=== PATIENT | female | born 1955 | race Caucasian/White ===

== ENCOUNTER 2017-04-08 16:14 | Inpatient (IN) | payer MEDICARE ==
[2017-04-08] VITALS (8 sets, daily range): BP systolic 136–187; BP diastolic 46–84; PULSE 92–113; RESP 15; TEMP 99–99.8; O2SAT 100
[2017-04-08] MEDS ORDERED: MIDAZOLAM HCL 5 MG/ML VIAL (1 ML) ONE (17:01)
[2017-04-08] MEDS: SODIUM CHLOR 0.9% 1000 ML INJ 1,000 ML IV SCH (17:30)
[2017-04-08] MEDS ORDERED: MAGNESIUM HYDROXIDE SUSP 30 ML CUP PO PRN (17:30)
[2017-04-08] MEDS ORDERED: ONDANSETRON HCL 4 MG/2 ML VIAL IV PUSH PRN (17:30)
[2017-04-08] MEDS ORDERED: SODIUM CHLORIDE 0.9% FLUSH 10 ML FLUSH IV FLUSH PRN (17:30)
[2017-04-08] MEDS ORDERED: BISACODYL 10 MG SUPP RECTAL PRN (17:30)
[2017-04-08] MEDS ORDERED: MIDAZOLAM HCL 2 MG/2 ML VIAL IV PUSH PRN (17:30)
[2017-04-08] MEDS ORDERED: CHLORHEXIDINE GLUCONATE 2 % 1 PACK (2 CLOTHS) TOP PRN (17:30)
[2017-04-08] MEDS ORDERED: MISCELLANEOUS NURSING INFORMATION XX SCH (17:30)
[2017-04-08] MEDS ORDERED: SENNOSIDES 8.6 MG TAB PO PRN (17:30)
[2017-04-08] MEDS ORDERED: LACTULOSE SYRUP 20 GM/30 ML CUP PO PRN (17:30)
[2017-04-08] MEDS ORDERED: GLUCAGON 1 MG/ML VIAL OTHER PRN ×2 (17:45→19:15)
[2017-04-08] MEDS ORDERED: niCARdipine INJ 25 MG in SODIUM CHLOR 0.9% 250 ML INJ 240 ML IV PRN (17:45)
[2017-04-08] MEDS ORDERED: DEXTROSE 50% IN WATER 50 ML VIAL(D50) IV PUSH PRN ×2 (17:45→19:15)
[2017-04-08] MEDS ORDERED: MIDAZOLAM 100 MG/100 ML INJ 100 ML IV PRN (17:45)
[2017-04-08] MEDS ORDERED: fentaNYL DRIP 250 ML IV PRN (17:45)
--- NOTE | 2017-04-08 17:50 | PD.CONS ---
HPI Consult Requested By Primary Care Physician Unknown Past Family Social History Allergies: Coded Allergies: codeine (Verified Allergy, Unknown, 04/08/17) lisinopril (Verified Allergy, Unknown, 04/08/17) Uncoded Allergies: shellfish (Allergy, Unknown, Anaphylaxis, 04/08/17) Physical Exam Laboratory Laboratory Tests Test 04/08/17 17:32 Blood Gas Puncture Site ART LINE Blood Gas Patient Temperature 98.6 Blood Gas HCO3 24 Blood Gas Base Excess -0.7 Blood Gas Oxygen Saturation 97 Arterial Blood pH 7.38 Arterial Blood Partial Pressure CO2 41 Arterial Blood Partial Pressure O2 180 Arterial Blood Oxygen Content 14.4 Arterial Blood Carboxyhemoglobin 1.5 Arterial Blood Methemoglobin 0.9 Blood Gas Hemoglobin 10.2 Oxygen Delivery Device VENTILATOR Blood Gas Ventilator Setting 450/14/+5/1.0 Blood Gas Inspired Oxygen 50 Assessment and Plan Assessment and Plan Imp:Hemorrhagic stroke, right tempoparietal. Associated to Xarelto Rec: Keep head elevated Repeat CT in am Neuro every hour Hypertonic saline. Maintain Na 150-155 Elroy Richard MD Apr 08, 2017 17:50
--- NOTE | 2017-04-08 17:55 | HHI.HP ---
HPI Service Critical Care Medicine Primary Care Physician Unknown Admission Diagnosis Diagnosis: (1) right intraparenchymal hemorrhage Diagnosis: Principal (2) Acute respiratory failure Diagnosis: Principal (3) IBS (irritable bowel syndrome) Diagnosis: Secondary (4) Acute hyperglycemia Diagnosis: Secondary (5) CAREY (obstructive sleep apnea) Diagnosis: Secondary (6) Dyslipidemia Diagnosis: Secondary (7) Iron deficiency anemia Diagnosis: Secondary (8) COPD (chronic obstructive pulmonary disease) Diagnosis: Secondary (9) Morbid obesity with BMI of 40.0-44.9, adult Diagnosis: Principal (10) Osteoarthritis Diagnosis: Secondary (11) Hypertension Diagnosis: Secondary (12) Atrial fibrillation, chronic Diagnosis: Principal Chief [facility] right temporoparietal intracerebral hemorrhage after being started on rivaroxaban Travel History International Travel<30 Days: No Contact w/Intl Traveler <30 Da: No Traveled to Known Affected Are: No History of Present Illness This is a 62-year-old female. Date of admission 04/08/2017. Past medical history includes chronic atrial fibrillation not on anticoagulation, hypertension, discectomy, COPD, obstructive apnea, iron deficiency anemia. Elevated BMI. Patient originally presented to [facility] 03/28 since after weakness/fall at 3 1 04/07. Of note patient had stopped her anticoagulation which was December 2016 secondary to iron deficiency anemia. She experience left-sided weakness with facial droop. Her atrial fibrillation is noted to be in RVR and was started on Cardizem for rate control. She is given aspirin at that time. 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 She was seen in consultation by neurology who did not recommend alteplase secondary to time duration from onset of symptoms.. She was seen in consultation by cardiology as well as started on rivaroxaban for likely embolic stroke secondary to CVA. 2D echocardiogram revealed an EF of 55%. Trace MR/MR and PI. Right ventricular systolic pressure was 26. Today, patient has decline in function. Stat CT of the brain revealed a right temporoparietal internal hemorrhage that obliterates the third ventricle with a 4-5 mm shift to the left. Patient was emergently intubated due to altered mental status and transferred to [facility] for evaluation by neurosurgery. In route patient was transported on propofol became hypotensive. This discontinued. Upon arrival patient was spontaneously moving the right upper lower extremity but not purposely. Left side remained flaccid. All labs and imaging currently pending at time of dictation Review of Systems ROS Limitations: Intubated Past Family Social History Allergies: Coded Allergies: codeine (Verified Allergy, Unknown, 04/08/17) lisinopril (Verified Allergy, Unknown, 04/08/17) Uncoded Allergies: shellfish (Allergy, Unknown, Anaphylaxis, 04/08/17) Past Medical History Atrial fibrillation/chronic Osteo-arthritis Hypertension/essential Dyslipidemia COPD CAREY IBS Iron deficiency anemia Past Surgical History T&A Bilateral tubal ligation Reported Medications Triamterene/hydrochlorothiazide 37.5/25 1 tablet daily Active Ordered Medications Reviewed in EMR Family History Father from CVA/chronic kidney disease and heart disease. Mother from Alzheimer's dementia. History of CABG. Social History Smoked tobacco from [id number]. One pack per day. Occasional alcohol use. No documented history of illicit drug use. Physical Exam Physical Exam GENERAL: 62-year-old female currently orotracheally intubated SKIN: Warm and dry. Significant right inguinal region hematoma from attempted central line placement at outside facility. HEAD: Atraumatic. Normocephalic. EYES: Pupils equal and round about 1 mm bilaterally and sluggish. No scleral icterus. No injection or drainage. ENT: No nasal bleeding or discharge. Mucous membranes pink and moist. NECK: Trachea midline. No JVD. CARDIOVASCULAR: R tachycardic, IR. S1, S2. No S4. Without murmurs, clicks, gallops or rubs RESPIRATORY: Clear to auscultation. Breath sounds equal bilaterally. GASTROINTESTINAL: Abdomen soft, non-tender, obese. Hypoactive bowel sounds are appreciated MUSCULOSKELETAL: Extremities with nonpitting bilateral lower extremity edema. No obvious deformities. NEUROLOGICAL: Positive gag. Positive corneal reflex. Spontaneously moving right upper lower extremity but not to command. Flaccid left upper lower extremity. Left facial droop. Septic Shock Reassessment Septic shock perfusion: reassessment completed Caprini VTE Risk Assessment Caprini VTE Risk Assessment: Mod/High Risk (score >= 2) VTE Pharm Contraindication: Hemorrhage Caprini Risk Assessment Model Point Value = 1 Point Value = 2 Point Value = 3 Point Value = 5 Age 41-60 Minor surgery BMI > 25 kg/m2 Swollen legs Varicose veins or History of unexplained or recurrent spontaneous Oral contraceptives or hormone replacement Sepsis (< 1 month) Serious lung disease, including pneumonia (< 1 month) Abnormal pulmonary function Acute myocardial infarction Congestive heart failure (< 1 month) History of inflammatory bowel disease Medical patient at bed rest Age 61-74 Arthroscopic surgery Major open surgery (> 45 min) Laparoscopic surgery (> 45 min) Malignancy Confined to bed (> 72 hours) Immobilizing plaster cast Central venous access Age >= 75 History of VTE Family history of VTE Factor V Leiden Prothrombin [id number] Lupus anticoagulant Anticardiolipin antibodies Elevated serum homocysteine Heparin-induced thrombocytopenia Other congenital or acquired thrombophilia Stroke (< 1 month) Elective arthroplasty Hip, pelvis, or leg fracture Acute spinal cord injury (< 1 month) Prophylaxis Regimen Total Risk Factor Score Risk Level Prophylaxis Regimen 0-1 Low Early ambulation 2 Moderate Order ONE of the following: *Sequential Compression Device (SCD) *Heparin 5000 units SQ BID 3-4 Higher Order ONE of the following medications: *Heparin 5000 units SQ TID *Enoxaparin/Lovenox 40 mg SQ daily (WT < 150 kg, CrCl > 30 mL/min) *Enoxaparin/Lovenox 30 mg SQ daily (WT < 150 kg, CrCl > 10-29 mL/min) *Enoxaparin/Lovenox 30 mg SQ BID (WT < 150 kg, CrCl > 30 mL/min) AND/OR *Sequential Compression Device (SCD) 5 or more Highest Order ONE of the following medications: *Heparin 5000 units SQ TID (Preferred with Epidurals) *Enoxaparin/Lovenox 40 mg SQ daily (WT < 150 kg, CrCl > 30 mL/min) *Enoxaparin/Lovenox 30 mg SQ daily (WT < 150 kg, CrCl > 10-29 mL/min) *Enoxaparin/Lovenox 30 mg SQ BID (WT < 150 kg, CrCl > 30 mL/min) AND *Sequential Compression Device (SCD) Assessment and Plan Assessment and Plan Neuro/Psych: Right temporoparietal intracerebral hemorrhage History of right parietal lobe CVA Admitted to [facility] 04/07/17 with right parietal CVA Converted to set him to right temporal parietal cerebral hemorrhage with obstruction of the third ventricle with a 4-5 mm right to left shift Order for propofol/fentanyl drips for sedation/analgesia while intubated Goal of RASS -2 Daily sedation vacation Evaluated by Dr. Richard/neurosurgery. Recommends hypertonic saline maintain sodium between 150 and 155 No indication for seizure prophylaxis Follow-up CT brain in a.m. 04/09 Neuro checks per [facility] protocol Acetaminophen 650 mg every 6 hours as needed fever CV: Chronic atrial fibrillation Hypertension/essential Dyslipidemia On as needed labetalol and nicardipine drip Goal keep systolic blood pressure between 140 and 160 Heart rate currently 100-120 2D echocardiogram at [facility] revealed EF 55%. Trace MR/TR and PI. RSVP 29 mmHg Started on atorvastatin 10 mg p.o. at night Check lipid panel Previously on trampoline/hydrochlorothiazide 37.5/25 1 tablet daily for hypertension Previously on diltiazem 240 mg p.o. daily for rate control along with sotalol 80 mg twice daily. These been held since Resp: Acute respiratory failure COPD CAREY [facility] /02/24/49 Ventilator bundle Albuterol/ipratropium aerosols every 6 hours with albuterol aerosols every 2 hours. Dyspnea Follow-up ABG and chest x-ray upon arrival Spontaneous breathing trials when clinically indicated GI: Irritable bowel syndrome OGT to LIWS Famotidine for GI prophylaxis Docusate sodium/senna 1 tablet twice daily for bowel regimen : Burt catheter has been placed for accurate I's and O's in a critically ill patient Endo: Hyperglycemia SSI with Novulog to maintain euglycemia/low regimen with Accu-Cheks every 6 hours Check TSH Renal: Creatinine currently within normal limits Monitor urine output Accurate I's and O's Heme: History of iron deficiency anemia Rivaroxaban use Monitor CBC and coags daily. Follow trends Received K Centra unknown dosage at [facility]. ID: Monitor for infection FEN: Replace electrolytes as clinically indicated per ICU electrolyte protocol MSK: Osteoarthritis PT/OT evaluate and treat Access -Right IJ CVL day #1 placed at [facility] -Right axillary arterial line day #1 placed 04/08 Prophylaxis -GI - famotidine -DVT -SCD/pharmacological prophylaxis contraindicated with acute intraparenchymal hemorrhage Critical Care: The total critical care time was 35 minutes. Time to perform other separately billable procedures was not included in the critical care time. Code Status Full code Discussed Condition With Dr Richard. Care plan discussed and all questions answered Problem Qualifiers (1) Acute respiratory failure: Qualified Codes: J96.00 - Acute respiratory failure, unspecified whether with hypoxia or hypercapnia (2) IBS (irritable bowel syndrome): Qualified Codes: K58.9 - Irritable bowel syndrome without diarrhea (3) Iron deficiency anemia: Qualified Codes: D50.9 - Iron deficiency anemia, unspecified (4) COPD (chronic obstructive pulmonary disease): Qualified Codes: J44.9 - Chronic obstructive pulmonary disease, unspecified (5) Hypertension: Qualified Codes: I10 - Essential (primary) hypertension Rick Mcdonald MD Apr 08, 2017 17:55
[2017-04-08] MEDS: ARTIFICIAL TEARS OPTH SOLN 15 ML BTL EACH EYE SCH (18:00)
[2017-04-08] MEDS ORDERED: niCARdipine 25 MG/NS 250 ML Vial2Bag or IV room IV PRN ×2 (18:15)
[2017-04-08] MEDS ORDERED: RASS Change Order XX ONE (18:15)
--- NOTE | 2017-04-08 18:19 | RADRPT ---
EXAM DATE/TIME: 04/08/2017 17:54 [facility] COMPARISON: No previous studies available for comparison. INDICATIONS : Post intubation. MEDICAL HISTORY : Non-responsive. SURGICAL HISTORY : Non-responsive. ENCOUNTER: Initial ACUITY: 1 day PAIN SCORE: Non-responsive. LOCATION: Bilateral chest FINDINGS: ETT is approximately 1.5 cm above the troy. Right IJ central line tip is in the central SVC. Evalua tion of the left inferior hemithorax is limited to to patient rotation. Suspect mild left lung base a irspace disease. Cardiomediastinal contours are within normal limits. Bony thorax is intact. CONCLUSION: 1. ETT is approximately 1.5 cm above the troy. 2. Right IJ central line in good position. No pneumothorax. 3. Suspect mild left lung base airspace disease which may reflect atelectasis. Darrell Nance MD on April 08, 2017 at 18:16 Board Certified Radiologist. This report was verified electronically.
--- NOTE | 2017-04-08 18:21 | PD.PROCEDR ---
Procedure Note Procedure DATE: 04/08/2017 PROCEDURE: Right axillary arterial catheter placement INDICATION: Hemodynamic access DETAILS OF PROCEDURE The patient was placed in supine position. The skin was cleansed with Chloraprep. Additional barrier precautions included large sterile drape, sterile gloves, sterile gown, face mask, and hat. 1% lidocaine was used for local anesthesia. Under direct ultrasound guidance and on the initial attempt, the artery was accessed with an introducer needle. The guide wire was advanced. Using Seldinger technique 20 gauge arterial catheter was placed. The guide wire was removed. The catheter was connected to a transducer line and flushed with saline. The video monitor displayed normal arterial wave forms. The catheter was secured with 2-0 silk. A sterile dressing with antibiotic disc was applied. ESTIMATED BLOOD LOSS: minimal COMPLICATIONS: None Rick Mcdonald MD Apr 08, 2017 18:21
--- NOTE | 2017-04-08 18:22 | MB ---
cc: JASON PEÑA MD DATE OF CONSULTATION: 04/08/2017. REASON FOR CONSULTATION / CHIEF COMPLAINT Fall. Transferred from [facility] due to stroke. HISTORY OF PRESENT ILLNESS: This is a 62-year-old female patient with history of multiple medical problems including atrial fibrillation, hypertension, dyslipidemia, COPD, obesity and smoking. She was admitted to [facility] after being seen there for a fall. At the time of their evaluation, she was found to have weakness on the left side. CT scan was performed, which showed a possible acute ischemic stroke of the right parietal lobe. Apparently while there, the patient was seen by neurology who did not recommend tPA due to time constraints. The patient eventually, because of atrial fibrillation, apparently was given Xarelto and apparently deteriorated. Repeat CT was performed that showed hemorrhage within the stroke area and because of this, she was transferred here to [facility]. PAST MEDICAL HISTORY: Her past medical history is significant for: 1. Hypertension. 2. Hyperlipidemia. 3. Atrial fibrillation. 4. COPD. 5. Sleep apnea. 6. Obesity. MEDICATIONS: Her medications include: 1. Triamterene / hydrochlorothiazide. 2. Sotalol. 3. Diltiazem. ALLERGIES: SHE HAS AN ALLERGY TO LISINOPRIL. FAMILY HISTORY: Her parents are with history of heart disease. SOCIAL HISTORY: She smoked until one to two years ago. She lives with her . REVIEW OF SYSTEMS: A review of systems is not obtainable at this present time but primarily pertains to the above history. PHYSICAL EXAMINATION: VITAL SIGNS: Blood pressure is 150/100, pulse of 90, respiratory rate of 14. GENERAL: General exam shows that she is intubated on a respirator. HEAD, EYES, EARS, NOSE, THROAT: Unremarkable. NECK: The neck is supple with good carotid pulses bilaterally. CHEST: Symmetric. LUNGS: Clear. HEART: Regular rhythm with normal heart sounds. ABDOMEN: Abdomen soft and nontender. EXTREMITIES: Clear. : Normal female genitalia. NEUROLOGICAL EXAMINATION: Neurologically the patient is obtunded. She does not follow commands. Again, she is intubated on a respirator. Cranial nerves II through XII show pinpoint pupils poorly reactive. Positive dolls eyes. Positive cough. Motor exam shows a left dense hemiparesis, arm worse than leg. She moves the right side to pain but not purposeful. Deep tendon reflexes are trace at all sites. IMAGING STUDIES: Review of a CT scan from 04/07 showed evidence of what appeared to be a possible ischemic stroke at the parietal lobe on the right side. Repeat CT on 04/08 shows evidence of progression of the stroke area with new evidence of hemorrhage within the stroke. Mild mass effect right to left. OVERALL IMPRESSION: Hemorrhagic stroke, probably secondary to Xarelto. PLAN: 1. Place the patient on neurological observation. 2. She should remain intubated. 3. Control her blood pressure. 4. Will also place her on hypertonic saline. 5. Maintain her sodium between [address] in am MD ELEONORA Bey/DEDE /5:40 PM /6:06 PM ANTONY
[2017-04-08] MEDS: 3% SALINE INJ 500 ML IV SCH (18:36)
[2017-04-08] MEDS: MIDAZOLAM 100 MG/NS 100 ML DRIP Premix IV PRN (18:37)
[2017-04-08] MEDS: fentaNYL 2,500 MCG/NS 250 ML IV PRN (18:37)
[2017-04-08] MEDS ORDERED: ACETAMINOPHEN 650 MG/20.3 ML UDC NG PRN (19:00)
[2017-04-08] MEDS ORDERED: MAGNESIUM OXIDE 400 MG TAB PO PRN (19:15)
[2017-04-08] MEDS ORDERED: POTASSIUM CHLOR 20 MEQ PREMIX 100 ML IV PRN ×2 (19:15)
[2017-04-08] MEDS ORDERED: POTASSIUM PHOSPHATE MONOBASIC 500 MG TAB PO/TUBE PRN (19:15)
[2017-04-08] MEDS ORDERED: MAGNESIUM SULFATE INJ 2 GM in SODIUM CHLORIDE 0.9% INJ 96 ML IV PRN (19:15)
[2017-04-08] MEDS ORDERED: POTASSIUM CHLOR 40 MEQ PREMIX 100 ML IV PRN ×2 (19:15)
[2017-04-08] MEDS ORDERED: POTASSIUM CHLORIDE 25 MEQ EFFERVESCENT TAB PO PRN (19:15)
[2017-04-08] MEDS ORDERED: POTASSIUM PHOSPHATE INJ 30 MMOL in SODIUM CHLOR 0.9% 250 ML INJ 250 ML IV PRN (19:15)
[2017-04-08] MEDS ORDERED: MAGNESIUM SULFATE INJ 4 GM in SODIUM CHLORIDE 0.9% INJ 92 ML IV PRN (19:15)
[2017-04-08] MEDS ORDERED: POTASSIUM PHOSPHATE MONOBASIC 500 MG TAB PO PRN (19:15)
[2017-04-08] MEDS ORDERED: SODIUM PHOSPHATE INJ 30 MMOL in SODIUM CHLOR 0.9% 250 ML INJ 240 ML IV PRN (19:15)
[2017-04-08] MEDS: RESP: ALBUTEROL 2.5 MG/IPRATROPIUM 0.5 MG NEB (SCH) INH ×2 (19:36→23:22)
[2017-04-08 20:20] LABS: AUTOMATED NEUTROPHIL # 11.1 TH/MM3 (1.8-7.7); BASOPHIL # 0.1 TH/MM3 (0-0.2); BASOPHIL % 0.4 % (0.0-2.0); EOSINOPHIL # 0.1 TH/MM3 (0-0.4); EOSINOPHIL % 0.5 % (0.0-4.0); HEMATOCRIT 34.6 % (35.0-46.0); HEMOGLOBIN 10.3 GM/DL (11.6-15.3); LYMPH % 16.1 % (9.0-44.0); LYMPHOCYTE # 2.5 TH/MM3 (1.0-4.8); MEAN CELL VOLUME 64.7 FL (80.0-100.0); MEAN CORPUSCULAR HEMOGLOBIN 19.2 PG (27.0-34.0); MEAN PLATELET VOLUME 7.7 FL (7.0-11.0); MONO % 10.6 % (0.0-8.0); MONOCYTE # 1.6 TH/MM3 (0-0.9); NEUT % 72.4 % (16.0-70.0); PLATELET COUNT 412 TH/MM3 (150-450); RED BLOOD COUNT 5.35 MIL/MM3 (4.00-5.30); RED CELL DISTRIBUTION WIDTH 20.9 % (11.6-17.2); WHITE BLOOD COUNT 15.3 TH/MM3 (4.0-11.0)
[2017-04-08 20:28] LABS: AST (GOT) 13 U/L (15-37); BICARBONATE 26.2 MEQ/L (21.0-32.0); BLOOD UREA NITROGEN 12 MG/DL (7-18); CALCIUM 8.2 MG/DL (8.5-10.1); CHLORIDE 105 MEQ/L (98-107); CREATININE 0.51 MG/DL (0.50-1.00); GLOMERULAR FILTRATION RATE 123 ML/MIN (>89); GLUCOSE,RANDOM 112 MG/DL (74-106); MAGNESIUM 2.1 MG/DL (1.5-2.5); SODIUM (NA) 136 MEQ/L (136-145)
[2017-04-08 20:30] LABS: ALT (GPT) 17 U/L (10-53); PHOSPHORUS 2.3 MG/DL (2.5-4.9)
[2017-04-08 20:33] LABS: MEAN CORPUSCULAR HGB CONC 29.8 % (32.0-36.0)
[2017-04-08 20:38] LABS: ALKALINE PHOSPHATASE 80 U/L (45-117); INTERNATIONAL NORMALIZED RATIO 1.1 RATIO; PROTHROMBIN TIME - PATIENT 11.4 SEC (9.8-11.6); TOTAL BILIRUBIN ADULT 0.5 MG/DL (0.2-1.0); TOTAL PROTEIN 6.8 GM/DL (6.4-8.2)
[2017-04-08] MEDS: CHLORHEXIDINE 0.12% (ORAL KIT) 15 ML CUP MT SCH (21:09)
[2017-04-08] MEDS: DOCUSATE SODIUM 50 MG/SENNA 8.6 MG TAB PO SCH (21:10)
[2017-04-08] MEDS: FAMOTIDINE 20 MG/2 ML VIAL IV PUSH SCH (21:10)
[2017-04-08] MEDS: SODIUM CHLORIDE 0.9% FLUSH 10 ML FLUSH IV FLUSH SCH (21:10)
[2017-04-08] MEDS: ATORVASTATIN 10 MG TAB PO SCH (21:10)
[2017-04-09] VITALS (23 sets, daily range): BP systolic 112–154; BP diastolic 57–80; PULSE 86–123; RESP 15–18; TEMP 98.4–99.1; O2SAT 97–100
[2017-04-09] MEDS: RESP: ALBUTEROL 2.5 MG/IPRATROPIUM 0.5 MG NEB (SCH) INH ×6 (03:37→23:19)
[2017-04-09] MEDS: CHLORHEXIDINE GLUCONATE 2 % 1 PACK (2 CLOTHS) TOP SCH (04:00)
[2017-04-09 05:25] LABS: AUTOMATED NEUTROPHIL # 8.2 TH/MM3 (1.8-7.7); BASOPHIL # 0.1 TH/MM3 (0-0.2); BASOPHIL % 0.7 % (0.0-2.0); EOSINOPHIL # 0.1 TH/MM3 (0-0.4); HEMATOCRIT 32.4 % (35.0-46.0); HEMOGLOBIN 9.5 GM/DL (11.6-15.3); LYMPH % 19.9 % (9.0-44.0); LYMPHOCYTE # 2.4 TH/MM3 (1.0-4.8); MEAN CELL VOLUME 65.2 FL (80.0-100.0); MEAN CORPUSCULAR HEMOGLOBIN 19.2 PG (27.0-34.0); MEAN PLATELET VOLUME 7.6 FL (7.0-11.0); MONO % 9.2 % (0.0-8.0); MONOCYTE # 1.1 TH/MM3 (0-0.9); NEUT % 69.2 % (16.0-70.0); PLATELET COUNT 348 TH/MM3 (150-450); RED BLOOD COUNT 4.97 MIL/MM3 (4.00-5.30); RED CELL DISTRIBUTION WIDTH 20.5 % (11.6-17.2); WHITE BLOOD COUNT 11.8 TH/MM3 (4.0-11.0)
[2017-04-09] MEDS: SODIUM CHLOR 0.9% 1000 ML INJ 1,000 ML IV SCH ×2 (05:25→15:10)
[2017-04-09 05:31] LABS: MEAN CORPUSCULAR HGB CONC 29.5 % (32.0-36.0)
[2017-04-09 05:39] LABS: INTERNATIONAL NORMALIZED RATIO 1.2 RATIO; PROTHROMBIN TIME - PATIENT 12.2 SEC (9.8-11.6)
--- NOTE | 2017-04-09 05:39 | RADRPT ---
EXAM DATE/TIME: 04/09/2017 05:16 [facility] COMPARISON: No previous studies available for comparison. EXTERNAL COMPARISON : [facility] April 08, 2017 INDICATIONS : Follow up hemorrhage. RADIATION DOSE: 62.35 CTDIvol (mGy) MEDICAL HISTORY : Non-responsive. SURGICAL HISTORY : Non-responsive. ENCOUNTER: Subsequent ACUITY: 1 day PAIN SCALE: Non-responsive LOCATION: cranial TECHNIQUE: Multiple contiguous axial images were obtained of the head. Using automated exposure control and adj ustment of the mA and/or kV according to patient size, radiation dose was kept as low as reasonably a chievable to obtain optimal diagnostic quality images. DICOM format image data is available electro nically for review and comparison. FINDINGS: Patient reportedly has a known hemorrhage in the brain. The hemorrhage measures about 6.4 cm in AP di ameter and area of edema measures up to 9.3 cm diameter. There is mass effect and right to left midli ne shift of about 1.3 cm. There is partial effacement of the perimesencephalic cistern and right late ral ventricle. No hydrocephalus. No abnormal extra-axial fluid. CONCLUSION: 1. Large hemorrhagic infarct in the right MCA distribution with mass effect and midline shift of abou t 13 mm from right to left. Prior study not available for comparison. Patient intubated. Joshua Ayon MD on April 09, 2017 at 5:34 Board Certified Radiologist. This report was verified electronically.
[2017-04-09 05:50] LABS: ALBUMIN 2.8 GM/DL (3.4-5.0); ALT (GPT) 15 U/L (10-53); AST (GOT) 13 U/L (15-37); BICARBONATE 23.8 MEQ/L (21.0-32.0); BLOOD UREA NITROGEN 13 MG/DL (7-18); CALCIUM 8.1 MG/DL (8.5-10.1); CHLORIDE 110 MEQ/L (98-107); CREATININE 0.52 MG/DL (0.50-1.00); GLOMERULAR FILTRATION RATE 120 ML/MIN (>89); GLUCOSE,RANDOM 139 MG/DL (74-106); MAGNESIUM 1.9 MG/DL (1.5-2.5); SODIUM (NA) 142 MEQ/L (136-145)
[2017-04-09 05:55] LABS: ALKALINE PHOSPHATASE 72 U/L (45-117); CHOLESTEROL 104 MG/DL (120-200); CHOLESTEROL/ HDL RATIO 3.61 RATIO; HDL CHOLESTEROL 28.8 MG/DL (40.0-60.0); LDL CHOLESTEROL 59 MG/DL (0-99); PHOSPHORUS 2.3 MG/DL (2.5-4.9); TOTAL BILIRUBIN ADULT 0.5 MG/DL (0.2-1.0); TOTAL PROTEIN 6.6 GM/DL (6.4-8.2); TRIGLYCERIDES 82 MG/DL (42-150)
[2017-04-09] MEDS: INSULIN ASPART SUPPLEMENTAL SCALE SQ SCH ×4 (06:00→18:00)
--- NOTE | 2017-04-09 07:49 | HHI.CCPN ---
Subjective Remarks/Hospital Course This is a 62-year-old female. Date of admission 04/08/2017. Past medical history includes chronic atrial fibrillation not on anticoagulation, hypertension, discectomy, COPD, obstructive apnea, iron deficiency anemia. Elevated BMI. Patient originally presented to [facility] 03/28 since after weakness/fall at 3 1 04/07. Of note patient had stopped her anticoagulation which was December 2016 secondary to iron deficiency anemia. She experience left-sided weakness with facial droop. Her atrial fibrillation is noted to be in RVR and was started on Cardizem for rate control. She is given aspirin at that time. 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 She was seen in consultation by neurology who did not recommend alteplase secondary to time duration from onset of symptoms.. She was seen in consultation by cardiology as well as started on rivaroxaban for likely embolic stroke secondary to CVA. 2D echocardiogram revealed an EF of 55%. Trace MR/MR and PI. Right ventricular systolic pressure was 26. Today, patient has decline in function. Stat CT of the brain revealed a right temporoparietal internal hemorrhage that obliterates the third ventricle with a 4-5 mm shift to the left. Patient was emergently intubated due to altered mental status and transferred to [facility] for evaluation by neurosurgery. In route patient was transported on propofol became hypotensive. This discontinued. Upon arrival patient was spontaneously moving the right upper lower extremity but not purposely. Left side remained flaccid. All labs and imaging currently pending at time of dictation Subjective 04/09: CT brain assay revealed worsening right-sided intraparenchymal hemorrhage with a 6.4 cm AP diameter with 9.3 cm cerebral edema in the penumbra with a right to left shift of 13 mm. Partial effacement of the perimesenteric cistern and compression of the right lateral ventricle. Currently on 3% saline and mannitol. Neurosurgery will be notified. Otherwise currently withdrawing to right upper lower extremity only. Positive grimace. Objective Vital Signs Date Time Temp Pulse Resp B/P (MAP) Pulse Ox O2 Delivery O2 Flow Rate FiO2 04/09/17 06:00 97 04/09/17 05:05 100 100 04/09/17 04:00 98.5 15 112/57 (75) 04/08/17 19:00 Mechanical Ventilator Result Diagram: 04/09/17 0500 04/09/17 0500 Imaging Last Impressions Chest X-Ray 04/08/17 0000 Signed Impressions: Service Date/Time: Saturday, April 08, 2017 17:54 - CONCLUSION: 1. ETT is approximately 1.5 cm above the troy. 2. Right IJ central line in good position. No pneumothorax. 3. Suspect mild left lung base airspace disease which may reflect atelectasis. Darrell Nance MD Objective Remarks GENERAL: 62-year-old female currently orotracheally intubated SKIN: Warm and dry. Significant right inguinal region hematoma from attempted central line placement at outside facility. HEAD: Atraumatic. Normocephalic. EYES: Pupils equal and round about 1 mm bilaterally and sluggish. No scleral icterus. No injection or drainage. ENT: No nasal bleeding or discharge. Mucous membranes pink and moist. NECK: Trachea midline. No JVD. CARDIOVASCULAR: IRR. S1, S2. No S4. Without murmurs, clicks, gallops or rubs RESPIRATORY: Clear to auscultation. Breath sounds equal bilaterally. GASTROINTESTINAL: Abdomen soft, non-tender, obese. Hypoactive bowel sounds are appreciated MUSCULOSKELETAL: Extremities with nonpitting bilateral lower extremity edema. No obvious deformities. Large fluctuant soft hematoma from attempted central line placement at outside facility within right inguinal region with slight oozing NEUROLOGICAL: Positive gag. Positive corneal reflex. Currently withdrawals right upper and lower extremity but not to command. Flaccid left upper lower extremity. Left facial droop. Urinary Catheter: Yes Assessment to: Continue Burt insert reason: Prolonged Immobilization Vascular Central Line Catheter: Yes Assessment to: Continue Date of Insertion: Apr 08, 2017 Line: Central Venous Catheter Side: Right Location: Internal, Jugular A/P Assessment and Plan Neuro/Psych: Right temporoparietal intracerebral hemorrhage History of right parietal lobe CVA Admitted to [facility] 04/07/17 with right parietal CVA Converted to set him to right temporal parietal cerebral hemorrhage with obstruction of the third ventricle with a 4-5 mm right to left shift CT brain Order for midazolam drip at 3 mg an hour and fentanyl drip at 75 g an hour for sedation/analgesia while intubated Goal of RASS -2 Daily sedation vacation when okay with neurosurgery Evaluated by Dr. Richard/neurosurgery. Recommends hypertonic saline maintain sodium between 150 and 155. Currently 142 No indication for seizure prophylaxis Follow-up CT brain in a.m. 04/09 revealed 6.4 severe AP diameter right temporoparietal intraparenchymal hemorrhage with its 9.3 cm edema. Right to left shift of 13 mm. Partial effacement of the perimesenteric cistern and compression the right lateral ventricle Neuro checks per ISC protocol Acetaminophen 650 mg every 6 hours as needed fever CV: Chronic atrial fibrillation Hypertension/essential Dyslipidemia On as needed labetalol and nicardipine drip Goal keep systolic blood pressure between 140 and 160 2D echocardiogram at [facility] revealed EF 55%. Trace MR/TR and PI. RSVP 29 mmHg Started on atorvastatin 10 mg p.o. at night Check lipid panel revealed LDL less than 57 cholesterol 104 Previously on trampoline/hydrochlorothiazide 37.5/25 1 tablet daily for hypertension Previously on diltiazem 240 mg p.o. daily for rate control along with sotalol 80 mg twice daily. These been held since Resp: Acute respiratory failure COPD [facility] /02/24/49 Ventilator bundle Albuterol/ipratropium aerosols every 6 hours with albuterol aerosols every 2 hours. Dyspnea Chest x-ray revealed left lower lobe atelectasis and adequate positioning of ET tube and right IJ central line Spontaneous breathing trials when clinically indicated GI: Irritable bowel syndrome OGT to LIWS Famotidine for GI prophylaxis Docusate sodium/senna 1 tablet twice daily for bowel regimen : Burt catheter has been placed for accurate I's and O's in a critically ill patient Endo: Hyperglycemia SSI with Novulog to maintain euglycemia/low regimen with Accu-Cheks every 6 hours Check TSH Renal: Creatinine currently within normal limits Monitor urine output Accurate I's and O's Heme: History of iron deficiency anemia Rivaroxaban use Leukocytosis Monitor CBC and coags daily. Follow trends Received K Centra unknown dosage at [facility]. ID: Monitor for infection FEN: Hypophosphatemia Replace electrolytes as clinically indicated per ICU electrolyte protocol 15 mmol sodium phosphate IV 1 now. Recheck in a.m. MSK: Osteoarthritis PT/OT evaluate and treat Access -Right IJ CVL day #2 placed at [facility] -Right axillary arterial line day #2 placed 04/08 Prophylaxis -GI - famotidine -DVT -SCD/pharmacological prophylaxis contraindicated with acute intraparenchymal hemorrhage Critical Care: The total critical care time was 35 minutes. Time to perform other separately billable procedures was not included in the critical care time. Rick Mcdonald MD Apr 09, 2017 07:49
[2017-04-09] MEDS: FAMOTIDINE 20 MG/2 ML VIAL IV PUSH SCH ×2 (08:04→19:48)
[2017-04-09] MEDS: DOCUSATE SODIUM 50 MG/SENNA 8.6 MG TAB PO SCH ×2 (08:04→19:47)
[2017-04-09] MEDS: ARTIFICIAL TEARS OPTH SOLN 15 ML BTL EACH EYE SCH ×3 (08:04→17:49)
[2017-04-09] MEDS: SODIUM CHLORIDE 0.9% FLUSH 10 ML FLUSH IV FLUSH SCH ×2 (08:05→19:48)
[2017-04-09] MEDS: CHLORHEXIDINE 0.12% (ORAL KIT) 15 ML CUP MT SCH ×2 (08:05→19:49)
[2017-04-09] MEDS: MANNITOL 12.5 GM/50 ML VIAL IV SCH ×3 (08:07→23:14)
[2017-04-09] MEDS: MAGNESIUM SULFATE 1 GM PREMIX 100 ML IV SCH ×2 (08:08→10:04)
[2017-04-09 08:48] LABS: HEMOGLOBIN A1C 6.9 % (4.3-6.0)
[2017-04-09] MEDS ORDERED: SODIUM PHOSPHATE INJ 15 MMOL in SODIUM CHLORIDE 0.9% INJ 150 ML IV ONE (10:00)
--- NOTE | 2017-04-09 11:50 | HHI.NSPN ---
History Chief Complaint: Unobtainable Interval History Patient stable. No changes neurologically Exam Results Vital Signs Date Time Temp Pulse Resp B/P (MAP) Pulse Ox O2 Delivery O2 Flow Rate FiO2 04/09/17 11:12 100 35 04/09/17 10:00 98 04/09/17 08:24 Ventilator 04/09/17 08:00 98.4 18 136/73 (94) Intake and Output 04/09/17 04/09/17 04/10/17 08:00 16:00 00:00 Intake Total 200 ml Balance 200 ml Physical Examination Remains intubated Tries to awaken when stimulated Left hemiplegia Lab, Micro, Other Results CT scan reviewed continued evidence of large right MCA stroke. Worsening of midline shift Medical Decision Making Impression and Plan Neurologically unchanged. CT scan of the brain appears worse Discussed with son over the phone. Option of surgery presented. Son undecided at the present time. Reports his stepfather cannot make decisions at the present time. Have indicated that we will continue to manage patient medically but that patient can worsen neurologically and become brain-. Son has indicated that he will notify me if he wants to proceed with surgery Elroy Richard MD Apr 09, 2017 11:50
--- NOTE | 2017-04-09 13:08 | MG ---
cc: CONCEPCION ZEPEDA Sex: F DATE OF STUDY: 04/09/2017 Test number is [id number]. TECHNIQUE 21 channel EEG. DESCRIPTION The background rhythm reveals generalized slowing in the theta frequency 5-6 Hz. There is a superimposed beta rhythm which is probably medication effect. There are no lateralizing features. No epileptiform discharges are present. Photic results in poor driving response. INTERPRETATION Abnormal study consistent with a significant encephalopathy. MD ELIZABETH Nolan/ISMAEL /12:59 PM /1:03 PM
--- NOTE | 2017-04-09 14:39 | EKG ---
Date Performed: 04/08/2017 Time Performed: 19:30:20 PTAGE: 62 years EKG: ATRIAL FLUTTER/TACHYCARDIA NONSPECIFIC ST & T-WAVE ABNORMALITY ABNORMAL ECG NO PREVIOUS TRACING DOCTOR: Mir Rahman Interpretating Date/Time 04/09/2017 14:37:14
--- NOTE | 2017-04-09 17:07 | HHI.NSPN ---
History Chief Complaint: Unobtainable Interval History Patient stable. No changes neurologically Exam Results Vital Signs Date Time Temp Pulse Resp B/P (MAP) Pulse Ox O2 Delivery O2 Flow Rate FiO2 04/09/17 16:51 99 35 04/09/17 12:00 98.6 92 18 145/80 (101) 04/09/17 08:24 Ventilator Intake and Output 04/09/17 04/09/17 04/10/17 08:00 16:00 00:00 Intake Total 200 ml Balance 200 ml Physical Examination Remains intubated Tries to awaken when stimulated Left hemiplegia Medical Decision Making Impression and Plan Neurologically unchanged. CT scan of the brain appears worse Discussed with son over the phone. Option of surgery presented. Son undecided at the present time. Reports his stepfather cannot make decisions at the present time. Have indicated that we will continue to manage patient medically but that patient can worsen neurologically and become brain-. Son has indicated that he will notify me if he wants to proceed with surgery Addendum: Later this afternoon had long discussion about patient's status with the son and [id number]. Presented possible surgical intervention. Father and son declined surgery at the present time. They understand the patient may continue to worsen and she could become brain DNR status to be discussed by Elroy Upton MD Apr 09, 2017 17:07
[2017-04-09] MEDS: 3% SALINE INJ 500 ML IV SCH (17:49)
[2017-04-09] MEDS: ATORVASTATIN 10 MG TAB PO SCH (19:47)
[2017-04-09] MEDS: LABETALOL HCL 100 MG/20 ML VIAL IV PUSH PRN (19:50)
[2017-04-09 19:58] LABS: SODIUM (NA) 144 MEQ/L (136-145)
[2017-04-09 20:04] LABS: % SATURATION IRON PROFILE 4.3 % (20-50); IRON (FE) 12 MCG/DL (50-170); TOTAL IRON BINDING CAPACITY 281 MCG/DL (250-450)
[2017-04-09 20:07] LABS: FERRITIN 16 NG/ML (8-252)
[2017-04-09] MEDS: MIDAZOLAM 100 MG/NS 100 ML DRIP Premix IV PRN (22:30)
[2017-04-10] VITALS (18 sets, daily range): BP systolic 124–141; BP diastolic 61–71; PULSE 92–129; RESP 14–19; TEMP 98.4–99.1; O2SAT 97–100
[2017-04-10] MEDS: RESP: ALBUTEROL 2.5 MG/IPRATROPIUM 0.5 MG NEB (SCH) INH ×6 (03:04→23:57)
[2017-04-10] MEDS: CHLORHEXIDINE GLUCONATE 2 % 1 PACK (2 CLOTHS) TOP SCH (03:29)
[2017-04-10] MEDS: SODIUM CHLOR 0.9% 1000 ML INJ 1,000 ML IV SCH ×2 (04:21→12:07)
[2017-04-10 04:44] LABS: AUTOMATED NEUTROPHIL # 6.3 TH/MM3 (1.8-7.7); BASOPHIL # 0.1 TH/MM3 (0-0.2); BASOPHIL % 0.8 % (0.0-2.0); EOSINOPHIL # 0.2 TH/MM3 (0-0.4); EOSINOPHIL % 1.8 % (0.0-4.0); HEMATOCRIT 27.5 % (35.0-46.0); HEMOGLOBIN 8.4 GM/DL (11.6-15.3); LYMPH % 22.8 % (9.0-44.0); LYMPHOCYTE # 2.2 TH/MM3 (1.0-4.8); MEAN CELL VOLUME 65.4 FL (80.0-100.0); MEAN CORPUSCULAR HEMOGLOBIN 19.8 PG (27.0-34.0); MEAN CORPUSCULAR HGB CONC 30.3 % (32.0-36.0); MEAN PLATELET VOLUME 7.3 FL (7.0-11.0); MONO % 8.9 % (0.0-8.0); MONOCYTE # 0.9 TH/MM3 (0-0.9); NEUT % 65.7 % (16.0-70.0); PLATELET COUNT 291 TH/MM3 (150-450); RED BLOOD COUNT 4.21 MIL/MM3 (4.00-5.30); RED CELL DISTRIBUTION WIDTH 20.7 % (11.6-17.2); WHITE BLOOD COUNT 9.6 TH/MM3 (4.0-11.0)
[2017-04-10] MEDS: INSULIN ASPART SUPPLEMENTAL SCALE SQ SCH ×4 (04:45→17:16)
--- NOTE | 2017-04-10 04:56 | HHI.CCPN ---
Subjective Remarks/Hospital Course This is a 62-year-old female. Date of admission 04/08/2017. Past medical history includes chronic atrial fibrillation not on anticoagulation, hypertension, discectomy, COPD, obstructive apnea, iron deficiency anemia. Elevated BMI. Patient originally presented to [facility] 03/28 since after weakness/fall at 3 1 04/07. Of note patient had stopped her anticoagulation which was December 2016 secondary to iron deficiency anemia. She experience left-sided weakness with facial droop. Her atrial fibrillation is noted to be in RVR and was started on Cardizem for rate control. She is given aspirin at that time. 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 She was seen in consultation by neurology who did not recommend alteplase secondary to time duration from onset of symptoms.. She was seen in consultation by cardiology as well as started on rivaroxaban for likely embolic stroke secondary to CVA. 2D echocardiogram revealed an EF of 55%. Trace MR/MR and PI. Right ventricular systolic pressure was 26. Today, patient has decline in function. Stat CT of the brain revealed a right temporoparietal internal hemorrhage that obliterates the third ventricle with a 4-5 mm shift to the left. Patient was emergently intubated due to altered mental status and transferred to [facility] for evaluation by neurosurgery. In route patient was transported on propofol became hypotensive. This discontinued. Upon arrival patient was spontaneously moving the right upper lower extremity but not purposely. Left side remained flaccid. All labs and imaging currently pending at time of dictation 04/09: CT brain assay revealed worsening right-sided intraparenchymal hemorrhage with a 6.4 cm AP diameter with 9.3 cm cerebral edema in the penumbra with a right to left shift of 13 mm. Partial effacement of the perimesenteric cistern and compression of the right lateral ventricle. Currently on 3% saline and mannitol. Neurosurgery will be notified. Otherwise currently withdrawing to right upper lower extremity only. Positive grimace. Subjective 04/10: Afebrile. Withdraws to left lower extremity this AM. Pupils remain pinpoint. Plan for CT head in a.m. Long discussion with family including inside with neurosurgery. Became very poor prognosis did not wish to pursue surgical intervention. CT brain done this AM. Palliative care consult pending Objective Vital Signs Date Time Temp Pulse Resp B/P (MAP) Pulse Ox O2 Delivery O2 Flow Rate FiO2 04/10/17 04:00 99.1 92 14 136/71 (92) 98 04/10/17 04:00 35 04/09/17 19:00 Mechanical Ventilator Intake and Output 04/10/17 04/10/17 04/11/17 08:00 16:00 00:00 Output Total 60 ml Balance -60 ml Result Diagram: 04/10/17 0433 04/10/17 0115 Imaging Last Impressions Head CT 04/09/17 0600 Signed Impressions: Service Date/Time: Sunday, April 09, 2017 05:16 - CONCLUSION: 1. Large hemorrhagic infarct in the right MCA distribution with mass effect and midline shift of about 13 mm from right to left. Prior study not available for comparison. Patient intubated. Joshua Ayon MD Chest X-Ray 04/08/17 0000 Signed Impressions: Service Date/Time: Saturday, April 08, 2017 17:54 - CONCLUSION: 1. ETT is approximately 1.5 cm above the troy. 2. Right IJ central line in good position. No pneumothorax. 3. Suspect mild left lung base airspace disease which may reflect atelectasis. Darrell Nance MD Objective Remarks GENERAL: 62-year-old female currently orotracheally intubated SKIN: Warm and dry. Significant right inguinal region hematoma from attempted central line placement at outside facility. HEAD: Atraumatic. Normocephalic. EYES: Pupils equal and round about 1 mm bilaterally and sluggish. No scleral icterus. No injection or drainage. ENT: No nasal bleeding or discharge. Mucous membranes pink and moist. NECK: Trachea midline. No JVD. CARDIOVASCULAR: IRR. S1, S2. No S4. Without murmurs, clicks, gallops or rubs RESPIRATORY: Clear to auscultation. Breath sounds equal bilaterally. GASTROINTESTINAL: Abdomen soft, non-tender, obese. Hypoactive bowel sounds are appreciated MUSCULOSKELETAL: Extremities with nonpitting bilateral lower extremity edema. No obvious deformities. Large fluctuant soft hematoma from attempted central line placement at outside facility within right inguinal region with slight oozing NEUROLOGICAL: Positive gag. Positive corneal reflex. Currently withdrawals right upper and lower extremity but not to command. Flaccid left upper lower extremity. Left facial droop. Urinary Catheter: Yes Assessment to: Continue Burt insert reason: Prolonged Immobilization Vascular Central Line Catheter: Yes Assessment to: Continue Date of Insertion: Apr 08, 2017 Line: Central Venous Catheter Side: Right Location: Internal, Jugular A/P Assessment and Plan Neuro/Psych: Right temporoparietal intracerebral hemorrhage History of right parietal lobe CVA Admitted to [facility] 04/07/17 with right parietal CVA Converted to set him to right temporal parietal cerebral hemorrhage with obstruction of the third ventricle with a 4-5 mm right to left shift CT brain Order for midazolam drip at 3 mg an hour and fentanyl drip at 75 g an hour for sedation/analgesia while intubated Goal of RASS -2 Daily sedation vacation when okay with neurosurgery Evaluated by Dr. Richard/neurosurgery. Recommends hypertonic saline maintain sodium between 150 and 155. Currently 142 No indication for seizure prophylaxis Follow-up CT brain in a.m. 04/09 revealed 6.4 severe AP diameter right temporoparietal intraparenchymal hemorrhage with its 9.3 cm edema. Right to left shift of 13 mm. Partial effacement of the perimesenteric cistern and compression the right lateral ventricle Neuro checks per ISC protocol Acetaminophen 650 mg every 6 hours as needed fever CV: Chronic atrial fibrillation Hypertension/essential Dyslipidemia On as needed labetalol and nicardipine drip Goal keep systolic blood pressure between 140 and [address] [facility] revealed EF 55%. Trace MR/TR and PI. RSVP 29 mmHg Started on atorvastatin 10 mg p.o. at night Check lipid panel revealed LDL less than 57 cholesterol 104 Previously on trampoline/hydrochlorothiazide 37.5/25 1 tablet daily for hypertension Previously on diltiazem 240 mg p.o. daily for rate control along with sotalol 80 mg twice daily. These been held since Resp: Acute respiratory failure COPD [facility] 18/500/02/24/50 Ventilator bundle Albuterol/ipratropium aerosols every 6 hours with albuterol aerosols every 2 hours. Dyspnea Chest x-ray revealed left lower lobe atelectasis and adequate positioning of ET tube and right IJ central line Spontaneous breathing trials when clinically indicated GI: Irritable bowel syndrome OGT to LIWS Famotidine for GI prophylaxis Docusate sodium/senna 1 tablet twice daily for bowel regimen : Burt catheter has been placed for accurate I's and O's in a critically ill patient Endo: Hyperglycemia SSI with Novulog to maintain euglycemia/low regimen with Accu-Cheks every 6 hours Check TSH Renal: Creatinine currently within normal limits Monitor urine output Accurate I's and O's Heme: History of iron deficiency anemia Rivaroxaban use Leukocytosis Monitor CBC and coags daily. Follow trends Received K Centra unknown dosage at [facility]. ID: Monitor for infection FEN: Hypophosphatemia Replace electrolytes as clinically indicated per ICU electrolyte protocol 15 mmol sodium phosphate IV 1 now. Recheck in a.m. MSK: Osteoarthritis PT/OT evaluate and treat Access -Right IJ CVL day #[address] [facility] -Right axillary arterial line day #2 placed 04/08 Prophylaxis -GI - famotidine -DVT -SCD/pharmacological prophylaxis contraindicated with acute intraparenchymal hemorrhage Critical Care: The total critical care time was 35 minutes. Time to perform other separately billable procedures was not included in the critical care time. Rick Mcdonald MD Apr 10, 2017 04:56
[2017-04-10 05:11] LABS: ALBUMIN 2.5 GM/DL (3.4-5.0); AST (GOT) 10 U/L (15-37); BICARBONATE 23.2 MEQ/L (21.0-32.0); BLOOD UREA NITROGEN 11 MG/DL (7-18); CALCIUM 7.9 MG/DL (8.5-10.1); CHLORIDE 114 MEQ/L (98-107); CREATININE 0.59 MG/DL (0.50-1.00); GLOMERULAR FILTRATION RATE 104 ML/MIN (>89); GLUCOSE,RANDOM 136 MG/DL (74-106); MAGNESIUM 2.2 MG/DL (1.5-2.5); SODIUM (NA) 145 MEQ/L (136-145)
[2017-04-10 05:16] LABS: ALKALINE PHOSPHATASE 65 U/L (45-117); ALT (GPT) 12 U/L (10-53); PHOSPHORUS 2.7 MG/DL (2.5-4.9); TOTAL BILIRUBIN ADULT 0.4 MG/DL (0.2-1.0)
--- NOTE | 2017-04-10 06:04 | RADRPT ---
EXAM DATE/TIME: 04/10/2017 04:31 [facility] COMPARISON: CHEST SINGLE AP, April 08, 2017, 17:54. INDICATIONS : Shortness of breath, respiratory disease. MEDICAL HISTORY : None. SURGICAL HISTORY : None. ENCOUNTER: Subsequent ACUITY: 3 days PAIN SCORE: 0/10 LOCATION: Bilateral chest FINDINGS: A single AP portable semierect view of the chest was obtained. The endotracheal tube remains in place with the tip 2 cm above the troy. There's been interval placement of a nasogastric tube which is s een coursing through the esophagus and into the stomach a period the right internal jugular central v enous line remains in place. There is increased opacity at the left lung base with new obscuration of the left hemidiaphragm. The left costophrenic angle is blunted. The right lung is clear. The heart s ize is at the upper limits of normal. CONCLUSION: 1. New opacity at the left lung base with blunting of left costophrenic angle characteristic of infil trate and/or effusion. This is of concern for pneumonia. 2. The patient remains intubated. Alex Walker MD on April 10, 2017 at 6:01 Board Certified Radiologist. This report was verified electronically.
[2017-04-10] MEDS: DOCUSATE SODIUM 50 MG/SENNA 8.6 MG TAB PO SCH ×2 (09:00→20:02)
--- NOTE | 2017-04-10 09:30 | RADRPT ---
EXAM DATE/TIME: 04/10/2017 09:14 [facility] COMPARISON: CT BRAIN W/O CONTRAST, April 09, 2017, 5:16. INDICATIONS : Follow up right intracranial hemorrhage RADIATION DOSE: 41.65 CTDIvol (mGy) MEDICAL HISTORY : Non-responsive. SURGICAL HISTORY : Non-responsive. ENCOUNTER: Subsequent ACUITY: 2 days PAIN SCALE: Non-responsive LOCATION: Right cranial TECHNIQUE: Multiple contiguous axial images were obtained of the head. Using automated exposure control and adj ustment of the mA and/or kV according to patient size, radiation dose was kept as low as reasonably a chievable to obtain optimal diagnostic quality images. DICOM format image data is available electro nically for review and comparison. FINDINGS: Again seen are isn't acute intraparenchymal hemorrhage centered in the left temporoparietal lobe. Is mixed in attenuation with areas of high attenuation hemorrhage as well as surrounding low attenuation edema which is cytotoxic in nature. There is midline shift measuring 15 mm which is slightly more pr onounced than the prior study where it measured 13 mm. CSF density remains within both lateral ventri cles. The suprasellar cistern CSF density is lost with the exception of the most inferior portion. No new source of hemorrhage observed. A small focal area of low attenuation change involving the cortex and adjacent subcortical white matter of the left parietal lobe is unchanged. Mucosal thickening inv olving ethmoid air cells bilaterally as well as the left sphenoid sinus. Calvarium is intact. Mastoid air cells are atrophic. CONCLUSION: 1. Unchanged acute intraperitoneal hemorrhage on the right. There has been a slight worsening in the midline shift now measuring 15 mm as opposed to 13 mm. 2. Small focus of low attenuation involving the cortex of the left parietal lobe either related to sm all nonhemorrhagic contusion or area of infarction. This is unchanged. Tex Buchanan Jr., MD on April 10, 2017 at 9:21 Board Certified Radiologist. This report was verified electronically.
[2017-04-10] MEDS: FAMOTIDINE 20 MG/2 ML VIAL IV PUSH SCH ×2 (09:54→20:02)
[2017-04-10] MEDS: ARTIFICIAL TEARS OPTH SOLN 15 ML BTL EACH EYE SCH ×3 (09:54→17:16)
[2017-04-10] MEDS: MANNITOL 12.5 GM/50 ML VIAL IV SCH ×2 (09:55→16:04)
[2017-04-10] MEDS: CHLORHEXIDINE 0.12% (ORAL KIT) 15 ML CUP MT SCH ×2 (09:56→20:00)
[2017-04-10] MEDS: SODIUM CHLORIDE 0.9% FLUSH 10 ML FLUSH IV FLUSH SCH ×2 (09:58→20:02)
[2017-04-10] MEDS: fentaNYL 2,500 MCG/NS 250 ML IV PRN (12:06)
--- NOTE | 2017-04-10 12:50 | PD.CONS ---
Consult Service Palliative Care Consult Requested By Dr. Mcdonald Primary Care Physician Unknown Reason for Consultation a. To assist with evaluation and management of symptoms including: shortness of breath, pain. b. To assist medical decision maker(s) with: better understanding of current medical conditions; weighing benefits/burdens of medical treatment options; making medical treatment decisions. . HPI History of Present Illness Mrs. Schmidt is a 62-year-old female with a medical history significant for atrial fibrillation, hypertension, dyslipidemia, COPD, sleep apnea, obesity and smoking. Patient was transferred from [facility] in [place], [place] on 04/08/17. On 04/07/17, patient presented to [facility] for evaluation of left-sided weakness after fall without loosing consciousness. On arrival to ER, patient was seen after fibrillation with RVR, heart rate in the 120s. Initial CT of the head showed acute ischemic infarct of the right parietal lobe. Patient was admitted to [facility] for further management. Neurology was consulted, stroke likely secondary to cardioembolic disease considering history of atrial fibrillation without anticoagulation. No TPA recommended due to time constraints. Echocardiogram 04/07/17 revealing EF of 55% , mild CLVH and no obvious mass or embolic source. Clinical course complicated by altered mental status. Repeat CT scan on 04/08/17 revealing large intracerebral hemorrhage in the temporoparietal region on the right side with 4- 5mm midline shift to the left, almost complete obliteration of the third ventricle. Patient was emergently intubated secondary to altered mental status and transferred to [facility] for evaluation by neurosurgery. Neurosurgery, Dr. Richard on 04/08/17. Patient was admitted to surgical ICU for neurological observation and management. Repeat head CT 04/09/17 revealing large right infarct in the right MCA distribution with mass effect and midline shift of about 13 mm from right to left. Follow-up head CT 04/10/17 revealing worsening midline shift now measuring 15 mm. Surgical intervention was presented to patient's family, declined at this time. Patient's overall prognosis is very poor, as per neurosurgery, patient may continue to worsen to brain-. Palliative care has been consulted for further clarifications of goals of care given the above. Patient seen in surgical ICU. She remains endotracheally intubated on mechanical ventilation. Discussed case with bedside RN Raul, patient off sedation for approximately 2 hours earlier this morning, not following commands or attempting to communicate. Nonpurposeful movement noted to right arm. Telephone call to patient's Joshua Schmidt. is elderly (85 years old) and very hard of hearing, unable to continue telephone conversation. asked me to talk to best friend Mckayla Gannon. Spoke to friend Mckayla, obtained patient's past medical history and psychosocial history. She reports that patient's will not be visiting patient today but agreed with meeting with palliative care tomorrow 04/11 at 11 AM for further goals of care conversation. Briefly reviewed patient's clinical condition and overall poor prognosis, friend tells me that patient's family is well aware of poor prognosis. Confirmed CODE STATUS as alternate, intubation only at this time. Friend verbalized that their main concern is patient's quality of life and comfort at this time. Friend works for [employer] in [place], familiar with comfort-directed care. She tells me that family is likely to proceed with comfort-directed care given poor prognosis for a meaningful recovery or survival. Friend Mckayla will be driving patient's tomorrow morning for meeting. . Function/Cognitive Trajectory Patient independent with all ADLs prior to CVA. Disabled secondary to osteoarthritis to bilateral knees and hip. Residing in private home with . . Review of Systems ROS Limitations: Clinical Condition, Intubated, Unresponsive Constitutional: DENIES: Fever Eyes: DENIES: Eye inflammation Ears, nose, mouth, throat: DENIES: Nasal discharge, Oral lesions, Running Nose , Epistaxis Respiratory: DENIES: Hemoptysis Cardiovascular: DENIES: Lower Extremity Edema Gastrointestinal: DENIES: Nausea, Vomiting Musculoskeletal: COMPLAINS OF: Stiffness, Decreased range of motion Integumentary: DENIES: Pruritus Hematologic/Lymphatics: COMPLAINS OF: Bruising Immunologic/Allergic: DENIES: Eczema Neurologic: COMPLAINS OF: Localized weakness Psychiatric: DENIES: Mood changes, Hallucinations Other ROS: Limited ROS secondary to patient's clinical condition, unresponsive. Past Family Social History Coded Allergies: codeine (Verified Allergy, Unknown, 04/08/17) lisinopril (Verified Allergy, Unknown, 04/08/17) Uncoded Allergies: shellfish (Allergy, Unknown, Anaphylaxis, 04/08/17) Past Medical History Atrial fibrillation Hypertension Dyslipidemia COPD Sleep apnea Obesity Osteoarthritis Irritable bowel syndrome Iron deficiency anemia . Past Surgical History T&A Bilateral tubal ligation . Reported Medications Cardizem-LA 240 mg daily Sotalol 80 mg by mouth twice a day Triamterene/hydrochlorothiazide 37.5/25 1 tablet daily . Current Medications Medications (Trade) Dose Ordered Sig/Joseph Route Start Time Stop Time Status Last Admin Sodium Chloride 1,000 ml @ 84 mls/hr [id number] IV 04/08/17 17:30 04/10/17 04:21 (NS Flush) 2 ml UNSCH PRN IV FLUSH 04/08/17 17:30 (NS Flush) 2 ml BID IV FLUSH 04/08/17 21:00 04/10/17 09:58 (Pepcid Inj) 20 mg Q12HR IV PUSH 04/08/17 21:00 04/10/17 09:54 (Versed Inj) 2 mg Q1H PRN IV PUSH 04/08/17 17:30 (Tears Naturale Opth Soln) 1 drop TID EACH EYE 04/08/17 18:00 04/10/17 09:54 (Zofran Inj) 4 mg Q6H PRN IV PUSH 04/08/17 17:30 (Duoneb Neb) 1 ampule Q4HR NEB INH 04/08/17 20:00 04/10/17 08:00 Miscellaneous Information 1 [id number] XX 04/08/17 17:30 (Chlorhexidine 2% Cloth) 3 pack Taper DAILY@04 TOP 04/09/17 04:00 04/05/18 03:59 (Chlorhexidine 2% Cloth) 3 pack UNSCH PRN TOP 04/08/17 17:30 (Leeanne-Colace) 1 tab BID PO 04/08/17 21:00 04/09/17 19:47 (Milk Of Magnesia Liq) 30 ml Q12H PRN PO 04/08/17 17:30 (Senokot) 17.2 mg Q12H PRN PO 04/08/17 17:30 (Dulcolax Supp) 10 mg DAILY PRN RECTAL 04/08/17 17:30 (Lactulose Liq) 30 ml DAILY PRN PO 04/08/17 17:30 (Trandate Inj) 5 mg Q1HR PRN IV PUSH 04/08/17 17:45 04/10/17 00:00 (Peridex 0.12% Liq) 15 ml BID@08,20 MT 04/08/17 20:00 04/10/17 09:56 Sodium Chloride 500 ml @ 30 mls/hr Q24H IV 04/08/17 17:45 04/09/17 17:49 (Lipitor) 10 mg HS PO 04/08/17 21:00 04/09/17 19:47 (D50w (Vial) Inj) 50 ml UNSCH PRN IV PUSH 04/08/17 17:45 (Glucagon Inj) 1 mg UNSCH PRN OTHER 04/08/17 17:45 Midazolam HCl 100 ml @ 2 mls/hr TITRATE PRN IV 04/08/17 17:30 04/09/17 22:30 Nicardipine HCl 25 mg/Sodium Chloride 250 ml @ 50 mls/hr TITRATE PRN IV 04/08/17 18:15 Fentanyl Citrate 250 ml @ 5 mls/hr TITRATE PRN IV 04/08/17 18:15 04/08/17 18:37 (Tylenol 650 Mg/ 20 ml Liq) 650 mg Q6H PRN NG 04/08/17 19:00 (D50w (Vial) Inj) 50 ml UNSCH PRN IV PUSH 04/08/17 19:15 (Glucagon Inj) 1 mg UNSCH PRN OTHER 04/08/17 19:15 (NovoLOG SUPPLEMENTAL SCALE) 1 Q6HR SQ 04/09/17 00:00 Potassium Chloride 100 ml @ 50 mls/hr Q2H PRN IV 04/08/17 19:15 Potassium Chloride 100 ml @ 50 mls/hr Q2H PRN IV 04/08/17 19:15 (K-Lyte Cl Eff) 50 meq UNSCH PRN PO 04/08/17 19:15 Potassium Chloride 100 ml @ 25 mls/hr UNSCH PRN IV 04/08/17 19:15 Potassium Chloride 100 ml @ 50 mls/hr Q2H PRN IV 04/08/17 19:15 Magnesium Sulfate 4 gm/Sodium Chloride 100 ml @ 50 mls/hr UNSCH PRN IV 04/08/17 19:15 (Mag-Ox) 800 mg UNSCH PRN PO 04/08/17 19:15 Magnesium Sulfate 2 gm/Sodium Chloride 100 ml @ 50 mls/hr UNSCH PRN IV 04/08/17 19:15 (K-Phos) 2,000 mg Q4H PRN PO 04/08/17 19:15 Sodium Phosphate 30 mmol/Sodium Chloride 250 ml @ 42 mls/hr UNSCH PRN IV 04/08/17 19:15 (K-Phos) 2,000 mg UNSCH PRN PO/TUBE 04/08/17 19:15 Potassium Phosphate 30 mmol/ Sodium Chloride 260 ml @ 42 mls/hr UNSCH PRN IV 04/08/17 19:15 (Mannitol Inj) 25 gm Q8H IV 04/09/17 08:00 04/10/17 09:55 Family History Father at age 83 from chronic renal failure and diabetes type 2, mother at age 79 of dementia, coronary artery disease. . Substance Use Tobacco: Former smoker. Reports quitting in 2013. Alcohol: None reported. Prescription med abuse: None reported. Illicits: None reported. . Psychosocial History Patient is originally from [place]. to current for the past 8 years. Patient has 1 biological son, Jim. Patient is disabled secondary to osteoarthritis of bilateral knees and hips. No service. Has a sister in [place] by the name of Carly. . Spiritual/Cultural Factors No methodist affiliations. . Health Care Surrogate(s): No advance directives completed. As per [place] statute, healthcare proxy decision making falls to patient's Joshua. . Family/friends goals: Pending goals of care conversation on 04/11/17. . Ethical and Legal Issues No ethical issues have been identified. . Physical Exam Vital Signs Date Time Temp Pulse Resp B/P (MAP) Pulse Ox O2 Delivery O2 Flow Rate FiO2 04/10/17 09:00 100 100 04/10/17 08:00 35 04/10/17 08:00 100 Mechanical Ventilator 35 04/10/17 08:00 112 04/10/17 08:00 99 35 04/10/17 08:00 112 04/10/17 06:00 114 04/10/17 04:00 99.1 92 14 136/71 (92) 98 04/10/17 04:00 92 04/10/17 04:00 35 04/10/17 04:00 100 35 04/10/17 02:00 121 04/10/17 00:00 98.7 123 18 141/67 (91) 98 04/10/17 00:00 123 04/10/17 00:00 35 04/09/17 23:20 97 35 04/09/17 23:00 98 04/09/17 22:00 102 04/09/17 20:00 35 04/09/17 20:00 99.1 123 18 133/62 (85) 97 04/09/17 20:00 123 04/09/17 19:19 98 35 04/09/17 19:00 100 Mechanical Ventilator 35 04/09/17 18:00 94 04/09/17 16:51 99 35 04/09/17 16:00 98.4 94 18 154/74 (100) 99 04/09/17 16:00 94 04/09/17 16:00 35 04/09/17 15:00 86 04/09/17 14:00 106 04/10/17 04/11/17 18:59 06:59 Intake Total 100 ml Output Total 100 ml Balance 0 ml Intake IV Total 100 ml Output Urine Total 100 ml Exam CONSTITUTIONAL/GENERAL: This is an obese female in no acute distress. Endotracheal intubated on mechanical ventilation. TUBES/LINES/DRAINS: ETT, OG, right IJ central line, Burt catheter, SCDs, bilateral soft wrist restraints. SKIN: No jaundice, rashes, or lesions. Ecchymoses on upper extremities. No wounds seen anteriorly. Skin temperature appropriate. Not diaphoretic. HEAD: Atraumatic. Normocephalic. EYES: No scleral icterus. No injection or drainage. ENT: Hearing grossly normal. Nose without bleeding or purulent drainage. Moist oral mucosa. NECK: Trachea midline. Supple. CARDIOVASCULAR: Irregular rate and rhythm. Peripheral pulses symmetric. RESPIRATORY/CHEST: Symmetric, unlabored respirations. Clear to auscultation. Endotracheally intubated on mechanical ventilation. GASTROINTESTINAL: Abdomen obese, large, round. Positive bowel sounds. GENITOURINARY: Without palpable bladder distension. Burt catheter in place. MUSCULOSKELETAL: Extremities without clubbing, cyanosis, or edema. No mottling or clubbing. NEUROLOGICAL: Unresponsive to verbal or tactile stimuli. nonpurposeful movement noted to provide upper extremity. PSYCHIATRIC: Unable to evaluate secondary to clinical condition. . Diagnostic Tests Laboratory Laboratory Tests Test 04/08/17 17:32 04/08/17 19:20 04/08/17 19:40 04/08/17 19:58 Blood Gas Puncture Site ART LINE Blood Gas Patient Temperature 98.6 Blood Gas HCO3 24 mmol/L (22-26) Blood Gas Base Excess -0.7 mmol/L (-2-2) Blood Gas Oxygen Saturation 97 % (90-100) Arterial Blood pH 7.38 (7.380-7.420) Arterial Blood Partial Pressure CO2 41 mmHg (38-42) Arterial Blood Partial Pressure O2 180 mmHg (61-120) Arterial Blood Oxygen Content 14.4 Vol % (12.0-20.0) Arterial Blood Carboxyhemoglobin 1.5 % (0-4) Arterial Blood Methemoglobin 0.9 % (0-2) Blood Gas Hemoglobin 10.2 G/DL (12.0-16.0) Oxygen Delivery Device VENTILATOR Blood Gas Ventilator Setting 450/14/+5/1.0 Blood Gas Inspired Oxygen 50 % Nasal Screen MRSA (PCR) MRSA NOT DETECTED (NOT Urine Opiates Screen POS (NEG) Urine Barbiturates Screen NEG (NEG) Urine Amphetamines Screen NEG (NEG) Urine Benzodiazepines Screen POS (NEG) Urine Cocaine Screen NEG (NEG) Urine Cannabinoids Screen NEG (NEG) White Blood Count 15.3 TH/MM3 (4.0-11.0) Red Blood Count 5.35 MIL/MM3 (4.00-5.30) Hemoglobin 10.3 GM/DL (11.6-15.3) Hematocrit 34.6 % (35.0-46.0) Mean Corpuscular Volume 64.7 FL (80.0-100.0) Mean Corpuscular Hemoglobin 19.2 PG (27.0-34.0) Mean Corpuscular Hemoglobin Concent 29.8 % (32.0-36.0) Red Cell Distribution Width 20.9 % (11.6-17.2) Platelet Count 412 TH/MM3 (150-450) Mean Platelet Volume 7.7 FL (7.0-11.0) Neutrophils (%) (Auto) 72.4 % (16.0-70.0) Lymphocytes (%) (Auto) 16.1 % (9.0-44.0) Monocytes (%) (Auto) 10.6 % (0.0-8.0) Eosinophils (%) (Auto) 0.5 % (0.0-4.0) Basophils (%) (Auto) 0.4 % (0.0-2.0) Neutrophils # (Auto) 11.1 TH/MM3 (1.8-7.7) Lymphocytes # (Auto) 2.5 TH/MM3 (1.0-4.8) Monocytes # (Auto) 1.6 TH/MM3 (0-0.9) Eosinophils # (Auto) 0.1 TH/MM3 (0-0.4) Basophils # (Auto) 0.1 TH/MM3 (0-0.2) CBC Comment DIFF FINAL Differential Comment Prothrombin Time 11.4 SEC (9.8-11.6) Prothromb Time International Ratio 1.1 RATIO Activated Partial Thromboplast Time 22.0 SEC (24.3-30.1) Fibrinogen 383 mg/dL (227-377) Blood Urea Nitrogen 12 MG/DL (7-18) Creatinine 0.51 MG/DL (0.50-1.00) Random Glucose 112 MG/DL (74-106) Total Protein 6.8 GM/DL (6.4-8.2) Albumin 3.0 GM/DL (3.4-5.0) Calcium Level 8.2 MG/DL (8.5-10.1) Phosphorus Level 2.3 MG/DL (2.5-4.9) Magnesium Level 2.1 MG/DL (1.5-2.5) Alkaline Phosphatase 80 U/L (45-117) Aspartate Amino Transf (AST/SGOT) 13 U/L (15-37) Alanine Aminotransferase (ALT/SGPT) 17 U/L (10-53) Total Bilirubin 0.5 MG/DL (0.2-1.0) Sodium Level 136 MEQ/L (136-145) Potassium Level 3.8 MEQ/L (3.5-5.1) Chloride Level 105 MEQ/L (98-107) Carbon Dioxide Level 26.2 MEQ/L (21.0-32.0) Anion Gap 5 MEQ/L (5-15) Estimat Glomerular Filtration Rate 123 ML/MIN (>89) Hemoglobin A1c 6.9 % (4.3-6.0) Serum Osmolality 292 MOSM/KG (275-295) Lactic Acid Level 0.9 mmol/L (0.4-2.0) Ammonia 32 MCMOL/L (11-32) Total Creatine Kinase 80 U/L (26-192) Amylase Level 78 U/L (25-115) Lipase 205 U/L (73-393) Thyroid Stimulating Hormone 3rd Gen 1.430 uIU/ML (0.358-3.740) Test 04/09/17 05:00 04/09/17 12:50 04/09/17 19:00 04/10/17 01:15 White Blood Count 11.8 TH/MM3 (4.0-11.0) Red Blood Count 4.97 MIL/MM3 (4.00-5.30) Hemoglobin 9.5 GM/DL (11.6-15.3) Hematocrit 32.4 % (35.0-46.0) Mean Corpuscular Volume 65.2 FL (80.0-100.0) Mean Corpuscular Hemoglobin 19.2 PG (27.0-34.0) Mean Corpuscular Hemoglobin Concent 29.5 % (32.0-36.0) Red Cell Distribution Width 20.5 % (11.6-17.2) Platelet Count 348 TH/MM3 (150-450) Mean Platelet Volume 7.6 FL (7.0-11.0) Neutrophils (%) (Auto) 69.2 % (16.0-70.0) Lymphocytes (%) (Auto) 19.9 % (9.0-44.0) Monocytes (%) (Auto) 9.2 % (0.0-8.0) Eosinophils (%) (Auto) 1.0 % (0.0-4.0) Basophils (%) (Auto) 0.7 % (0.0-2.0) Neutrophils # (Auto) 8.2 TH/MM3 (1.8-7.7) Lymphocytes # (Auto) 2.4 TH/MM3 (1.0-4.8) Monocytes # (Auto) 1.1 TH/MM3 (0-0.9) Eosinophils # (Auto) 0.1 TH/MM3 (0-0.4) Basophils # (Auto) 0.1 TH/MM3 (0-0.2) CBC Comment DIFF FINAL Differential Comment Prothrombin Time 12.2 SEC (9.8-11.6) Prothromb Time International Ratio 1.2 RATIO Activated Partial Thromboplast Time 24.5 SEC (24.3-30.1) Blood Urea Nitrogen 13 MG/DL (7-18) Creatinine 0.52 MG/DL (0.50-1.00) Random Glucose 139 MG/DL (74-106) Total Protein 6.6 GM/DL (6.4-8.2) Albumin 2.8 GM/DL (3.4-5.0) Calcium Level 8.1 MG/DL (8.5-10.1) Phosphorus Level 2.3 MG/DL (2.5-4.9) Magnesium Level 1.9 MG/DL (1.5-2.5) Alkaline Phosphatase 72 U/L (45-117) Aspartate Amino Transf (AST/SGOT) 13 U/L (15-37) Alanine Aminotransferase (ALT/SGPT) 15 U/L (10-53) Total Bilirubin 0.5 MG/DL (0.2-1.0) Sodium Level 142 MEQ/L (136-145) 141 MEQ/L (136-145) 144 MEQ/L (136-145) 144 MEQ/L (136-145) Potassium Level 3.8 MEQ/L (3.5-5.1) Chloride Level 110 MEQ/L (98-107) Carbon Dioxide Level 23.8 MEQ/L (21.0-32.0) Anion Gap 8 MEQ/L (5-15) Estimat Glomerular Filtration Rate 120 ML/MIN (>89) Serum Osmolality 293 MOSM/KG (275-295) 292 MOSM/KG (275-295) 296 MOSM/KG (275-295) 303 MOSM/KG (275-295) Lactic Acid Level 0.9 mmol/L (0.4-2.0) Triglycerides Level 82 MG/DL (42-150) Cholesterol Level 104 MG/DL (120-200) LDL Cholesterol 59 MG/DL (0-99) HDL Cholesterol 28.8 MG/DL (40.0-60.0) Cholesterol/HDL Ratio 3.61 RATIO Iron Level 12 MCG/DL (50-170) Total Iron Binding Capacity 281 MCG/DL (250-450) Percent Iron Saturation 4.3 % (20-50) Transferrin 201 MG/DL (213-418) Ferritin 16 NG/ML (8-252) Test 04/10/17 04:33 04/10/17 07:36 White Blood Count 9.6 TH/MM3 (4.0-11.0) Red Blood Count 4.21 MIL/MM3 (4.00-5.30) Hemoglobin 8.4 GM/DL (11.6-15.3) Hematocrit 27.5 % (35.0-46.0) Mean Corpuscular Volume 65.4 FL (80.0-100.0) Mean Corpuscular Hemoglobin 19.8 PG (27.0-34.0) Mean Corpuscular Hemoglobin Concent 30.3 % (32.0-36.0) Red Cell Distribution Width 20.7 % (11.6-17.2) Platelet Count 291 TH/MM3 (150-450) Mean Platelet Volume 7.3 FL (7.0-11.0) Neutrophils (%) (Auto) 65.7 % (16.0-70.0) Lymphocytes (%) (Auto) 22.8 % (9.0-44.0) Monocytes (%) (Auto) 8.9 % (0.0-8.0) Eosinophils (%) (Auto) 1.8 % (0.0-4.0) Basophils (%) (Auto) 0.8 % (0.0-2.0) Neutrophils # (Auto) 6.3 TH/MM3 (1.8-7.7) Lymphocytes # (Auto) 2.2 TH/MM3 (1.0-4.8) Monocytes # (Auto) 0.9 TH/MM3 (0-0.9) Eosinophils # (Auto) 0.2 TH/MM3 (0-0.4) Basophils # (Auto) 0.1 TH/MM3 (0-0.2) CBC Comment DIFF FINAL Differential Comment Blood Urea Nitrogen 11 MG/DL (7-18) Creatinine 0.59 MG/DL (0.50-1.00) Random Glucose 136 MG/DL (74-106) Total Protein 6.0 GM/DL (6.4-8.2) Albumin 2.5 GM/DL (3.4-5.0) Calcium Level 7.9 MG/DL (8.5-10.1) Phosphorus Level 2.7 MG/DL (2.5-4.9) Magnesium Level 2.2 MG/DL (1.5-2.5) Alkaline Phosphatase 65 U/L (45-117) Aspartate Amino Transf (AST/SGOT) 10 U/L (15-37) Alanine Aminotransferase (ALT/SGPT) 12 U/L (10-53) Total Bilirubin 0.4 MG/DL (0.2-1.0) Sodium Level 145 MEQ/L (136-145) Potassium Level 3.6 MEQ/L (3.5-5.1) Chloride Level 114 MEQ/L (98-107) Carbon Dioxide Level 23.2 MEQ/L (21.0-32.0) Anion Gap 8 MEQ/L (5-15) Estimat Glomerular Filtration Rate 104 ML/MIN (>89) Serum Osmolality 302 MOSM/KG (275-295) Blood Gas Puncture Site ART LINE Blood Gas Patient Temperature 98.6 Blood Gas HCO3 20 mmol/L (22-26) Blood Gas Base Excess -3.2 mmol/L (-2-2) Blood Gas Oxygen Saturation 96 % (90-100) Arterial Blood pH 7.45 (7.380-7.420) Arterial Blood Partial Pressure CO2 30 mmHg (38-42) Arterial Blood Partial Pressure O2 100 mmHg (61-120) Arterial Blood Oxygen Content 11.0 Vol % (12.0-20.0) Arterial Blood Carboxyhemoglobin 1.8 % (0-4) Arterial Blood Methemoglobin 0.9 % (0-2) Blood Gas Hemoglobin 8.1 G/DL (12.0-16.0) Oxygen Delivery Device VENTILATOR Blood Gas Ventilator Setting PRVC/AC Blood Gas Inspired Oxygen 35 % Result Diagram: 04/10/1743204/10/17432 Imaging Last Impressions Head CT 04/10/17 0730 Signed Impressions: Service Date/Time: Monday, April 10, 2017 09:14 - CONCLUSION: 1. Unchanged acute intraperitoneal hemorrhage on the right. There has been a slight worsening in the midline shift now measuring 15 mm as opposed to 13 mm. 2. Small focus of low attenuation involving the cortex of the left parietal lobe either related to small nonhemorrhagic contusion or area of infarction. This is unchanged. Tex Buchanan Jr., MD Chest X-Ray 04/10/17 0600 Signed Impressions: Service Date/Time: Monday, April 10, 2017 04:31 - CONCLUSION: 1. New opacity at the left lung base with blunting of left costophrenic angle characteristic of infiltrate and/or effusion. This is of concern for pneumonia. 2. The patient remains intubated. Alex Walker MD Procedures * 04/08/17: Endotracheal intubation . Patient/Family Conference Present at Family Conference: Enrico, friend Inessa . Family Conference Time (mins): 34 Family Conference Location: Telephone Issues Discussed: * Palliative care role, purpose, approach * Additional medical, psychosocial, and spiritual history * Patients general health, functional status, and cognitive changes in the months leading up to the current hospitalization * Patient/family understanding of the current medical problems * Patient/family understanding of prognosis * Patients goals of care as best understood from advance directives and/or conversations and/or values * Questions answered to the best of my ability * Palliative care contact information provided . Assessment and Plan Disease Oriented Problem List: (1) right intraparenchymal hemorrhage (2) CVA (cerebral vascular accident) (3) Acute respiratory failure (4) COPD (chronic obstructive pulmonary disease) (5) Atrial fibrillation (6) Hypertension Symptom Scale: (1) Pain 0-10 Scale: Unable to quantify Pertinent Non-Medical Issues Psychosocial: Patient is originally from [place]. to current for the past 8 years. Patient has 1 biological son, Jim. Patient is disabled secondary to osteoarthritis of bilateral knees and hips. No service. Has a sister in [place] by the name of Carly. Spiritual: No methodist affiliation. Legal: Unclear if AD has been completed. Ethical issues impacting care: No ethical issues identified. . Important Contacts Joshua Lawson Sharri Merlos Friend Mckayla Gannon Son Jim -pending contact information . Prognosis Mrs. Schmidt is a 62-year-old female with a medical history significant for atrial fibrillation, hypertension, dyslipidemia, COPD, sleep apnea, obesity and smoking. Patient with acute ischemic infarct of the right parietal lobe, complicated by subsequent large intracerebral hemorrhage in the temporoparietal region on the right side with 4-5mm midline shift to the left, almost complete obliteration of the third ventricle. Further complicated by worsening midline shift currently 15 mm. Overall prognosis very poor for a meaningful recovery or survival, may to progress to brain-. . Code Status: Alternative Code Plan * CODE STATUS: Alternate code, intubation only. It has been confirmed with patient's via telephone today. * HEALTHCARE DECISION-MAKING: Patient lacks medical decision-making capacity given clinical condition, catastrophic brain hemorrhage. Patient will not regain medical decision-making capacity. No advance directives completed. As per [place] statute, healthcare proxy decision making falls to patient's Joshua Lawson. has accepted this role. * GOALS OF CARE: Aggressive management short of NO cardiac code at this time. Family meeting scheduled for tomorrow 04/11/17 at 11:00 AM. Family has declined surgical intervention, they are likely to proceed with comfort-directed care given pt's worsening condition and very poor prognosis. * SYMPTOMS: =Pain, history of chronic pain secondary to OA to bilateral knees and hips. Acute pain secondary to intubation, lines, critical condition. Currently on fentanyl drip, appears comfortable. No further recommendations. * Palliative care contact information has been provided to patient's family. * Palliative care will continue to follow-up for further clarifications of goals of care as patient's clinical course continues to evolve. . Time Spent Total Floor Time (mins): 66 (Total time to include review and summarization of available medical records to include records from [facility], exam, goals of care conversation with patient's family, case discussion with bedside RN.) >50% Counseling/Coord of Care: Yes Thank you for the opportunity to participate in the care of Ms. Lawson. Attestation To help prompt me to consider important information that might be impacting today's encounter and assessment, information from prior notes written by myself or my colleagues may have been "brought forward" into today's note. My signature on this note, however, is an attestation that I personally performed the exam, history, and/or decision-making noted today, and, unless otherwise indicated, the interactions with patient, family, and staff as well as the review of records all occurred today. I also attest that the listed assessment and stated plan reflect my best clinical judgment today based on the combination of historical information, prior notes, and today's exam/ interactions. When time spent is documented, it refers only to time spent today by the signer, or if indicated, combined time spent today by collaborating physician/nurse practitioner. Claudia Gillespie Apr 10, 2017 12:50
--- NOTE | 2017-04-10 13:52 | HHI.NSPN ---
History Chief Complaint: Unobtainable. Large right hemorrhagic stroke with hx of xarelto use. Interval History 04/10/17: Pt sedated on Fentanyl and Versed drips. RN states he held the sedation and there was only slight movement in the right hand and leg to pain. Pt not opening eyes. Pupils 1mm bilaterally not reacting bilaterally. Pt currently intubated. Family is meeting tomorrow with palliative care to discuss further wishes. Neurosurgery over the weekend has documented family did not want any surgical intervention. System Review Comments Not able to obtain given clinical condition. Exam Results Vital Signs Date Time Temp Pulse Resp B/P (MAP) Pulse Ox O2 Delivery O2 Flow Rate FiO2 04/10/17 12:12 98 35 04/10/17 12:00 98.6 113 17 135/70 (91) 04/10/17 08:00 Mechanical Ventilator Intake and Output 04/10/17 04/10/17 04/11/17 08:00 16:00 00:00 Intake Total 1719 ml 50 ml Output Total 350 ml 400 ml Balance 1369 ml -350 ml Physical Examination General: Pt sedated on Versed and Fentanyl drip and intubated. Eyes: Pupils 1mm bilaterally NR bilaterally. Resp: CTA bilaterally. Intubated. PRVC A/C rate 16. Peep 5 FiO2 35%. Heart: Irregular. No murmurs Abd: Soft positive bs Skin: No cyanosis or erythema. Muscle: Not following commands for muscle testing. when sedation held RN reports only slight movement in right hand and right leg. Neuro: Pt sedated on Versed and Fentanyl drips. Pupils 1mm bilaterally NR bilaterally. Not following commands. When sedation held by RN he reports only slight movement in right hand and leg to pain. Lab, Micro, Other Results Last Impressions Head CT 04/10/17 9463 Signed Impressions: Service Date/Time: Monday, April 10, 2017 09:14 - CONCLUSION: 1. Unchanged acute intraperitoneal hemorrhage on the right. There has been a slight worsening in the midline shift now measuring 15 mm as opposed to 13 mm. 2. Small focus of low attenuation involving the cortex of the left parietal lobe either related to small nonhemorrhagic contusion or area of infarction. This is unchanged. Tex Buchanan Jr., MD Chest X-Ray 04/10/17 0600 Signed Impressions: Service Date/Time: Monday, April 10, 2017 04:31 - CONCLUSION: 1. New opacity at the left lung base with blunting of left costophrenic angle characteristic of infiltrate and/or effusion. This is of concern for pneumonia. 2. The patient remains intubated. Alex Walker MD Laboratory Tests Test 04/09/17 19:00 04/10/17 01:15 04/10/17 04:33 04/10/17 07:36 Sodium Level 144 MEQ/L 144 MEQ/L 145 MEQ/L Serum Osmolality 296 MOSM/KG 303 MOSM/KG 302 MOSM/KG Iron Level 12 MCG/DL Total Iron Binding Capacity 281 MCG/DL Percent Iron Saturation 4.3 % Transferrin 201 MG/DL Ferritin 16 NG/ML White Blood Count 9.6 TH/MM3 Red Blood Count 4.21 MIL/MM3 Hemoglobin 8.4 GM/DL Hematocrit 27.5 % Mean Corpuscular Volume 65.4 FL Mean Corpuscular Hemoglobin 19.8 PG Mean Corpuscular Hemoglobin Concent 30.3 % Red Cell Distribution Width 20.7 % Platelet Count 291 TH/MM3 Mean Platelet Volume 7.3 FL Neutrophils (%) (Auto) 65.7 % Lymphocytes (%) (Auto) 22.8 % Monocytes (%) (Auto) 8.9 % Eosinophils (%) (Auto) 1.8 % Basophils (%) (Auto) 0.8 % Neutrophils # (Auto) 6.3 TH/MM3 Lymphocytes # (Auto) 2.2 TH/MM3 Monocytes # (Auto) 0.9 TH/MM3 Eosinophils # (Auto) 0.2 TH/MM3 Basophils # (Auto) 0.1 TH/MM3 CBC Comment DIFF FINAL Differential Comment Blood Urea Nitrogen 11 MG/DL Creatinine 0.59 MG/DL Random Glucose 136 MG/DL Total Protein 6.0 GM/DL Albumin 2.5 GM/DL Calcium Level 7.9 MG/DL Phosphorus Level 2.7 MG/DL Magnesium Level 2.2 MG/DL Alkaline Phosphatase 65 U/L Aspartate Amino Transf (AST/SGOT) 10 U/L Alanine Aminotransferase (ALT/SGPT) 12 U/L Total Bilirubin 0.4 MG/DL Potassium Level 3.6 MEQ/L Chloride Level 114 MEQ/L Carbon Dioxide Level 23.2 MEQ/L Anion Gap 8 MEQ/L Estimat Glomerular Filtration Rate 104 ML/MIN Blood Gas Puncture Site ART LINE Blood Gas Patient Temperature 98.6 Blood Gas HCO3 20 mmol/L Blood Gas Base Excess -3.2 mmol/L Blood Gas Oxygen Saturation 96 % Arterial Blood pH 7.45 Arterial Blood Partial Pressure CO2 30 mmHg Arterial Blood Partial Pressure O2 100 mmHg Arterial Blood Oxygen Content 11.0 Vol % Arterial Blood Carboxyhemoglobin 1.8 % Arterial Blood Methemoglobin 0.9 % Blood Gas Hemoglobin 8.1 G/DL Oxygen Delivery Device VENTILATOR Blood Gas Ventilator Setting PRVC/AC Blood Gas Inspired Oxygen 35 % 04/10/17 04/10/17 04/11/17 15:00 23:00 07:00 Intake Total 150 ml Output Total 500 ml Balance -350 ml Intake IV Total 100 ml Tube Feeding 50 ml Output Urine Total 500 ml Medical Decision Making Impression and Plan A: 62 y/o FM with large right hemorrhagic stroke with midline shift with history of being on Xarelto. P: Pts family reportedly does not want surgical intervention and there is a family meeting scheduled tomorrow with palliative care. Continue with comfort/supportive care. Anticoagulation is obviously on hold. Discussed with MIRELLA. Hector Cronin Apr 10, 2017 1:52 pm
--- NOTE | 2017-04-10 14:52 | ECHRPT ---
Indication: CVA/TIA CONCLUSIONS Normal left ventricular size. The left ventricular systolic function is normal with an estimated ej ection fraction in the range of 55-60%. Wall thickness is normal. Normal wall motion. No valvular abnormalities are identified. Tiny pericardial effusion. BP: / HR: Rhythm: Atrial fibrillation MEASUREMENTS (Male / Female) Normal Values Technical Quality:Good 2D ECHO LV Diastolic Diameter PLAX 4.5 cm 4.2 - 5.9 / 3.9 - 5.3 cm LV Systolic Diameter PLAX 3.4 cm IVS Diastolic Thickness 1.3 cm 0.6 - 1.0 / 0.6 - 0.9 cm LVPW Diastolic Thickness 0.9 cm 0.6 - 1.0 / 0.6 - 0.9 cm LV Relative Wall Thickness 0.5 LA Systolic Diameter LX 4.0 cm 3.0 - 4.0 / 2.7 - 3.8 cm M-MODE Aortic Root Diameter MM 3.3 cm AV Cusp Separation MM 2.3 cm DOPPLER MV Area PHT 5.0 cm Mitral E Point Velocity 161.0 cm/s TR Peak Velocity 300.0 cm/s TR Peak Gradient 36.0 mmHg FINDINGS LEFT VENTRICLE Normal left ventricular size. The left ventricular systolic function is normal with an estimated ej ection fraction in the range of 55-60%. Wall thickness is normal. Normal wall motion. RIGHT VENTRICLE Normal right ventricular size and systolic function. LEFT ATRIUM The left atrial size is normal. RIGHT ATRIUM The right atrial size is normal. ATRIAL SEPTUM Normal atrial septal thickness without atrial level shunting by limited color doppler interrogation. AORTA The aortic root and proximal ascending aorta are normal in size on limited imaging. MITRAL VALVE Structurally normal mitral valve. No mitral valve stenosis or regurgitation. AORTIC VALVE Trileaflet aortic valve. No aortic valve stenosis or regurgitation. TRICUSPID VALVE Structurally normal tricuspid valve. No tricuspid valve stenosis or regurgitation. PULMONARY VALVE The pulmonary valve is not well visualized. VESSELS The inferior vena cava is normal in size. PERICARDIUM Tiny pericardial effusion. Juni Vences MD (Electronically Signed) Final Date:10 April 2017 14:51
[2017-04-10] MEDS: ATORVASTATIN 10 MG TAB PO SCH (20:02)
[2017-04-10] MEDS: LABETALOL HCL 100 MG/20 ML VIAL IV PUSH PRN ×2 (23:30)
[2017-04-11] VITALS (12 sets, daily range): BP systolic 120–138; BP diastolic 55–62; PULSE 92–122; RESP 16–17; TEMP 99.3–100.1; O2SAT 0–100
[2017-04-11] MEDS ORDERED: DILTIAZEM HCL 25 MG/5 ML VIAL IV PUSH ONE (00:15)
[2017-04-11] MEDS ORDERED: DILTIAZEM INJ 125 MG in SODIUM CHLORIDE 0.9% INJ 100 ML IV PRN (00:15)
[2017-04-11] MEDS: SODIUM CHLOR 0.9% 1000 ML INJ 1,000 ML IV SCH ×2 (00:15→11:29)
[2017-04-11] MEDS: 3% SALINE INJ 500 ML IV SCH (02:30)
[2017-04-11] MEDS: CHLORHEXIDINE GLUCONATE 2 % 1 PACK (2 CLOTHS) TOP SCH (02:53)
[2017-04-11] MEDS: RESP: ALBUTEROL 2.5 MG/IPRATROPIUM 0.5 MG NEB (SCH) INH ×3 (03:18→10:55)
[2017-04-11] MEDS: INSULIN ASPART SUPPLEMENTAL SCALE SQ SCH ×3 (05:05→12:00)
[2017-04-11 05:08] LABS: BASOPHIL # 0.1 TH/MM3 (0-0.2); BASOPHIL % 0.9 % (0.0-2.0); EOSINOPHIL # 0.2 TH/MM3 (0-0.4); EOSINOPHIL % 2.2 % (0.0-4.0); HEMATOCRIT 25.9 % (35.0-46.0); HEMOGLOBIN 7.8 GM/DL (11.6-15.3); LYMPH % 15.1 % (9.0-44.0); LYMPHOCYTE # 1.7 TH/MM3 (1.0-4.8); MEAN CELL VOLUME 66.3 FL (80.0-100.0); MEAN CORPUSCULAR HEMOGLOBIN 19.9 PG (27.0-34.0); MEAN CORPUSCULAR HGB CONC 30.1 % (32.0-36.0); MEAN PLATELET VOLUME 7.7 FL (7.0-11.0); MONO % 9.4 % (0.0-8.0); NEUT % 72.4 % (16.0-70.0); PLATELET COUNT 298 TH/MM3 (150-450); RED CELL DISTRIBUTION WIDTH 21.2 % (11.6-17.2)
[2017-04-11 05:16] LABS: BICARBONATE 24.6 MEQ/L (21.0-32.0); CALCIUM 7.9 MG/DL (8.5-10.1); CREATININE 0.46 MG/DL (0.50-1.00); PHOSPHORUS 2.7 MG/DL (2.5-4.9)
[2017-04-11] MEDS: MIDAZOLAM 100 MG/NS 100 ML DRIP Premix IV PRN (07:00)
[2017-04-11] MEDS: SODIUM CHLORIDE 0.9% FLUSH 10 ML FLUSH IV FLUSH SCH (07:57)
[2017-04-11] MEDS: ARTIFICIAL TEARS OPTH SOLN 15 ML BTL EACH EYE SCH ×2 (08:04→13:00)
[2017-04-11] MEDS: CHLORHEXIDINE 0.12% (ORAL KIT) 15 ML CUP MT SCH (08:04)
[2017-04-11] MEDS: MANNITOL 12.5 GM/50 ML VIAL IV SCH ×2 (08:24)
[2017-04-11] MEDS: FAMOTIDINE 20 MG/2 ML VIAL IV PUSH SCH (08:24)
[2017-04-11] MEDS: DOCUSATE SODIUM 50 MG/SENNA 8.6 MG TAB PO SCH (08:24)
[2017-04-11] MEDS: fentaNYL 2,500 MCG/NS 250 ML IV PRN (12:13)
[2017-04-11] MEDS ORDERED: HYDROmorphone HCL PF 2 MG/ML VIAL IV PUSH ONE ×2 (13:15→13:45)
[2017-04-11] MEDS ORDERED: HYOSCYAMINE 0.5 MG/ML AMP IV PUSH ONE (13:15)
[2017-04-11] MEDS ORDERED: LORazepam 2 MG/ML VIAL IV PUSH ONE ×2 (13:15→13:45)
--- NOTE | 2017-04-11 13:33 | HHI.HCPN ---
Reason for visit a. To assist with evaluation and management of symptoms including: shortness of breath, pain. b. To assist medical decision maker(s) with: better understanding of current medical conditions; weighing benefits/burdens of medical treatment options; making medical treatment decisions. . Subjective/Interval History Patient seen in SICU. Remains intubated on mechanical ventilation. Unresponsive to tactile or voice stimuli. Max temp 100.1 today. Reviewed case with Dr. Cotton , poor prognosis for a meaningful recovery or survival. Met with pt's family. In attendance, Joshua Lawson, family friend Rama and her boyfriend. Spoke with Patient's son Jim Syed and attempted to call pt's sister Carly. Reviewed with family patient's clinical condition and overall poor prognosis given devastating brain bleed. Family reiterated that patient has verbalized in multiple occasions not wishing to live on life support "attached to machines". Reviewed continuation of conservative management vs compassionate withdrawal of life support given very poor prognosis. Family has elected to transition patient to comfort-directed care/ withdrawal of life support given devastating brain bl;eeb with poor prognosis and pt's known wishes. . Family/friend interactions See interval note. . Advance Directives Living Will: Never completed Health Care Surrogate: Never completed Advance Directive Specifics Health Care Surrogate(s): No advance directives completed. As per [place] statute, healthcare proxy decision making falls to patient's Joshua. . Significant change in goals: Family electing comfort-directed care/withdrawal of life support. . Objective Vital Signs Date Time Temp Pulse Resp B/P (MAP) Pulse Ox O2 Delivery O2 Flow Rate FiO2 04/11/17 12:00 100.1 107 16 124/55 (78) 100 04/11/17 12:00 35 04/11/17 12:00 107 04/11/17 10:00 99 04/11/17 08:00 35 04/11/17 08:00 100.0 118 16 138/62 (87) 100 Automatic Cuff 04/11/17 08:00 118 04/11/17 07:58 100 35 04/11/17 07:00 122 04/11/17 07:00 100 Mechanical Ventilator 35 04/11/17 06:00 109 04/11/17 04:00 35 04/11/17 04:00 100.1 92 16 124/60 (81) 100 04/11/17 04:00 92 04/11/17 03:19 100 35 04/11/17 02:00 111 04/11/17 00:48 129 148/65 04/11/17 00:00 99.3 118 17 120/57 (78) 100 04/11/17 00:00 118 04/11/17 00:00 35 04/10/17 23:57 100 35 04/10/17 23:00 129 04/10/17 22:00 117 04/10/17 20:27 100 35 04/10/17 20:00 98.4 118 17 133/62 (85) 100 04/10/17 20:00 118 04/10/17 20:00 35 04/10/17 19:00 100 Mechanical Ventilator 35 04/10/17 18:00 118 04/10/17 16:01 100 35 04/10/17 16:00 120 04/10/17 16:00 98.6 120 19 141/61 (87) 100 04/10/17 16:00 35 04/10/17 16:00 120 04/10/17 14:00 128 Intake & Output 04/11/17 04/11/17 07:00 19:00 Intake Total 411 ml 1284 ml Output Total 1031 ml 610 ml Balance -620 ml 674 ml Intake IV Total 100 ml 1250 ml Tube Feeding 311 ml 34 ml Output Urine Total 1031 ml 610 ml Physical Exam CONSTITUTIONAL/GENERAL: This is an obese female in no acute distress. Endotracheal intubated on mechanical ventilation. TUBES/LINES/DRAINS: ETT, OG, right IJ central line, Burt catheter, SCDs, bilateral soft wrist restraints. SKIN: No jaundice, rashes, or lesions. Ecchymoses on upper extremities. No wounds seen anteriorly. Skin temperature appropriate. Not diaphoretic. HEAD: Atraumatic. Normocephalic. EYES: No scleral icterus. No injection or drainage. ENT: Hearing grossly normal. Nose without bleeding or purulent drainage. Moist oral mucosa. NECK: Trachea midline. Supple. CARDIOVASCULAR: Irregular rate and rhythm. Peripheral pulses symmetric. RESPIRATORY/CHEST: Symmetric, unlabored respirations. Clear to auscultation. Endotracheally intubated on mechanical ventilation. GASTROINTESTINAL: Abdomen obese, large, round. Positive bowel sounds. GENITOURINARY: Without palpable bladder distension. Burt catheter in place. MUSCULOSKELETAL: Extremities without clubbing, cyanosis, or edema. No mottling or clubbing. NEUROLOGICAL: Unresponsive to verbal or tactile stimuli. PSYCHIATRIC: Unable to evaluate secondary to clinical condition. . Diagnostic Tests Laboratory Laboratory Tests Test 04/08/17 17:32 04/08/17 19:20 04/08/17 19:40 04/08/17 19:58 Blood Gas Puncture Site ART LINE Blood Gas Patient Temperature 98.6 Blood Gas HCO3 24 mmol/L (22-26) Blood Gas Base Excess -0.7 mmol/L (-2-2) Blood Gas Oxygen Saturation 97 % (90-100) Arterial Blood pH 7.38 (7.380-7.420) Arterial Blood Partial Pressure CO2 41 mmHg (38-42) Arterial Blood Partial Pressure O2 180 mmHg (61-120) Arterial Blood Oxygen Content 14.4 Vol % (12.0-20.0) Arterial Blood Carboxyhemoglobin 1.5 % (0-4) Arterial Blood Methemoglobin 0.9 % (0-2) Blood Gas Hemoglobin 10.2 G/DL (12.0-16.0) Oxygen Delivery Device VENTILATOR Blood Gas Ventilator Setting 450/14/+5/1.0 Blood Gas Inspired Oxygen 50 % Nasal Screen MRSA (PCR) MRSA NOT DETECTED (NOT Urine Opiates Screen POS (NEG) Urine Barbiturates Screen NEG (NEG) Urine Amphetamines Screen NEG (NEG) Urine Benzodiazepines Screen POS (NEG) Urine Cocaine Screen NEG (NEG) Urine Cannabinoids Screen NEG (NEG) White Blood Count 15.3 TH/MM3 (4.0-11.0) Red Blood Count 5.35 MIL/MM3 (4.00-5.30) Hemoglobin 10.3 GM/DL (11.6-15.3) Hematocrit 34.6 % (35.0-46.0) Mean Corpuscular Volume 64.7 FL (80.0-100.0) Mean Corpuscular Hemoglobin 19.2 PG (27.0-34.0) Mean Corpuscular Hemoglobin Concent 29.8 % (32.0-36.0) Red Cell Distribution Width 20.9 % (11.6-17.2) Platelet Count 412 TH/MM3 (150-450) Mean Platelet Volume 7.7 FL (7.0-11.0) Neutrophils (%) (Auto) 72.4 % (16.0-70.0) Lymphocytes (%) (Auto) 16.1 % (9.0-44.0) Monocytes (%) (Auto) 10.6 % (0.0-8.0) Eosinophils (%) (Auto) 0.5 % (0.0-4.0) Basophils (%) (Auto) 0.4 % (0.0-2.0) Neutrophils # (Auto) 11.1 TH/MM3 (1.8-7.7) Lymphocytes # (Auto) 2.5 TH/MM3 (1.0-4.8) Monocytes # (Auto) 1.6 TH/MM3 (0-0.9) Eosinophils # (Auto) 0.1 TH/MM3 (0-0.4) Basophils # (Auto) 0.1 TH/MM3 (0-0.2) CBC Comment DIFF FINAL Differential Comment Prothrombin Time 11.4 SEC (9.8-11.6) Prothromb Time International Ratio 1.1 RATIO Activated Partial Thromboplast Time 22.0 SEC (24.3-30.1) Fibrinogen 383 mg/dL (227-377) Blood Urea Nitrogen 12 MG/DL (7-18) Creatinine 0.51 MG/DL (0.50-1.00) Random Glucose 112 MG/DL (74-106) Total Protein 6.8 GM/DL (6.4-8.2) Albumin 3.0 GM/DL (3.4-5.0) Calcium Level 8.2 MG/DL (8.5-10.1) Phosphorus Level 2.3 MG/DL (2.5-4.9) Magnesium Level 2.1 MG/DL (1.5-2.5) Alkaline Phosphatase 80 U/L (45-117) Aspartate Amino Transf (AST/SGOT) 13 U/L (15-37) Alanine Aminotransferase (ALT/SGPT) 17 U/L (10-53) Total Bilirubin 0.5 MG/DL (0.2-1.0) Sodium Level 136 MEQ/L (136-145) Potassium Level 3.8 MEQ/L (3.5-5.1) Chloride Level 105 MEQ/L (98-107) Carbon Dioxide Level 26.2 MEQ/L (21.0-32.0) Anion Gap 5 MEQ/L (5-15) Estimat Glomerular Filtration Rate 123 ML/MIN (>89) Hemoglobin A1c 6.9 % (4.3-6.0) Serum Osmolality 292 MOSM/KG (275-295) Lactic Acid Level 0.9 mmol/L (0.4-2.0) Ammonia 32 MCMOL/L (11-32) Total Creatine Kinase 80 U/L (26-192) Amylase Level 78 U/L (25-115) Lipase 205 U/L (73-393) Thyroid Stimulating Hormone 3rd Gen 1.430 uIU/ML (0.358-3.740) Test 04/09/17 05:00 04/09/17 12:50 04/09/17 19:00 04/10/17 01:15 White Blood Count 11.8 TH/MM3 (4.0-11.0) Red Blood Count 4.97 MIL/MM3 (4.00-5.30) Hemoglobin 9.5 GM/DL (11.6-15.3) Hematocrit 32.4 % (35.0-46.0) Mean Corpuscular Volume 65.2 FL (80.0-100.0) Mean Corpuscular Hemoglobin 19.2 PG (27.0-34.0) Mean Corpuscular Hemoglobin Concent 29.5 % (32.0-36.0) Red Cell Distribution Width 20.5 % (11.6-17.2) Platelet Count 348 TH/MM3 (150-450) Mean Platelet Volume 7.6 FL (7.0-11.0) Neutrophils (%) (Auto) 69.2 % (16.0-70.0) Lymphocytes (%) (Auto) 19.9 % (9.0-44.0) Monocytes (%) (Auto) 9.2 % (0.0-8.0) Eosinophils (%) (Auto) 1.0 % (0.0-4.0) Basophils (%) (Auto) 0.7 % (0.0-2.0) Neutrophils # (Auto) 8.2 TH/MM3 (1.8-7.7) Lymphocytes # (Auto) 2.4 TH/MM3 (1.0-4.8) Monocytes # (Auto) 1.1 TH/MM3 (0-0.9) Eosinophils # (Auto) 0.1 TH/MM3 (0-0.4) Basophils # (Auto) 0.1 TH/MM3 (0-0.2) CBC Comment DIFF FINAL Differential Comment Prothrombin Time 12.2 SEC (9.8-11.6) Prothromb Time International Ratio 1.2 RATIO Activated Partial Thromboplast Time 24.5 SEC (24.3-30.1) Blood Urea Nitrogen 13 MG/DL (7-18) Creatinine 0.52 MG/DL (0.50-1.00) Random Glucose 139 MG/DL (74-106) Total Protein 6.6 GM/DL (6.4-8.2) Albumin 2.8 GM/DL (3.4-5.0) Calcium Level 8.1 MG/DL (8.5-10.1) Phosphorus Level 2.3 MG/DL (2.5-4.9) Magnesium Level 1.9 MG/DL (1.5-2.5) Alkaline Phosphatase 72 U/L (45-117) Aspartate Amino Transf (AST/SGOT) 13 U/L (15-37) Alanine Aminotransferase (ALT/SGPT) 15 U/L (10-53) Total Bilirubin 0.5 MG/DL (0.2-1.0) Sodium Level 142 MEQ/L (136-145) 141 MEQ/L (136-145) 144 MEQ/L (136-145) 144 MEQ/L (136-145) Potassium Level 3.8 MEQ/L (3.5-5.1) Chloride Level 110 MEQ/L (98-107) Carbon Dioxide Level 23.8 MEQ/L (21.0-32.0) Anion Gap 8 MEQ/L (5-15) Estimat Glomerular Filtration Rate 120 ML/MIN (>89) Serum Osmolality 293 MOSM/KG (275-295) 292 MOSM/KG (275-295) 296 MOSM/KG (275-295) 303 MOSM/KG (275-295) Lactic Acid Level 0.9 mmol/L (0.4-2.0) Triglycerides Level 82 MG/DL (42-150) Cholesterol Level 104 MG/DL (120-200) LDL Cholesterol 59 MG/DL (0-99) HDL Cholesterol 28.8 MG/DL (40.0-60.0) Cholesterol/HDL Ratio 3.61 RATIO Iron Level 12 MCG/DL (50-170) Total Iron Binding Capacity 281 MCG/DL (250-450) Percent Iron Saturation 4.3 % (20-50) Transferrin 201 MG/DL (213-418) Ferritin 16 NG/ML (8-252) Test 04/10/17 04:33 04/10/17 07:36 04/10/17 15:20 04/10/17 17:50 White Blood Count 9.6 TH/MM3 (4.0-11.0) Red Blood Count 4.21 MIL/MM3 (4.00-5.30) Hemoglobin 8.4 GM/DL (11.6-15.3) Hematocrit 27.5 % (35.0-46.0) Mean Corpuscular Volume 65.4 FL (80.0-100.0) Mean Corpuscular Hemoglobin 19.8 PG (27.0-34.0) Mean Corpuscular Hemoglobin Concent 30.3 % (32.0-36.0) Red Cell Distribution Width 20.7 % (11.6-17.2) Platelet Count 291 TH/MM3 (150-450) Mean Platelet Volume 7.3 FL (7.0-11.0) Neutrophils (%) (Auto) 65.7 % (16.0-70.0) Lymphocytes (%) (Auto) 22.8 % (9.0-44.0) Monocytes (%) (Auto) 8.9 % (0.0-8.0) Eosinophils (%) (Auto) 1.8 % (0.0-4.0) Basophils (%) (Auto) 0.8 % (0.0-2.0) Neutrophils # (Auto) 6.3 TH/MM3 (1.8-7.7) Lymphocytes # (Auto) 2.2 TH/MM3 (1.0-4.8) Monocytes # (Auto) 0.9 TH/MM3 (0-0.9) Eosinophils # (Auto) 0.2 TH/MM3 (0-0.4) Basophils # (Auto) 0.1 TH/MM3 (0-0.2) CBC Comment DIFF FINAL Differential Comment Blood Urea Nitrogen 11 MG/DL (7-18) Creatinine 0.59 MG/DL (0.50-1.00) Random Glucose 136 MG/DL (74-106) Total Protein 6.0 GM/DL (6.4-8.2) Albumin 2.5 GM/DL (3.4-5.0) Calcium Level 7.9 MG/DL (8.5-10.1) Phosphorus Level 2.7 MG/DL (2.5-4.9) Magnesium Level 2.2 MG/DL (1.5-2.5) Alkaline Phosphatase 65 U/L (45-117) Aspartate Amino Transf (AST/SGOT) 10 U/L (15-37) Alanine Aminotransferase (ALT/SGPT) 12 U/L (10-53) Total Bilirubin 0.4 MG/DL (0.2-1.0) Sodium Level 145 MEQ/L (136-145) 148 MEQ/L (136-145) 148 MEQ/L (136-145) Potassium Level 3.6 MEQ/L (3.5-5.1) Chloride Level 114 MEQ/L (98-107) Carbon Dioxide Level 23.2 MEQ/L (21.0-32.0) Anion Gap 8 MEQ/L (5-15) Estimat Glomerular Filtration Rate 104 ML/MIN (>89) Serum Osmolality 302 MOSM/KG (275-295) 303 MOSM/KG (275-295) 312 MOSM/KG (275-295) Blood Gas Puncture Site ART LINE Blood Gas Patient Temperature 98.6 Blood Gas HCO3 20 mmol/L (22-26) Blood Gas Base Excess -3.2 mmol/L (-2-2) Blood Gas Oxygen Saturation 96 % (90-100) Arterial Blood pH 7.45 (7.380-7.420) Arterial Blood Partial Pressure CO2 30 mmHg (38-42) Arterial Blood Partial Pressure O2 100 mmHg (61-120) Arterial Blood Oxygen Content 11.0 Vol % (12.0-20.0) Arterial Blood Carboxyhemoglobin 1.8 % (0-4) Arterial Blood Methemoglobin 0.9 % (0-2) Blood Gas Hemoglobin 8.1 G/DL (12.0-16.0) Oxygen Delivery Device VENTILATOR Blood Gas Ventilator Setting [facility]/AC Blood Gas Inspired Oxygen 35 % Test 04/11/17 00:31 04/11/17 04:30 04/11/17 12:00 Sodium Level 148 MEQ/L (136-145) 148 MEQ/L (136-145) 150 MEQ/L (136-145) Serum Osmolality 310 MOSM/KG (275-295) 308 MOSM/KG (275-295) 308 MOSM/KG (275-295) White Blood Count 11.0 TH/MM3 (4.0-11.0) Red Blood Count 3.90 MIL/MM3 (4.00-5.30) Hemoglobin 7.8 GM/DL (11.6-15.3) Hematocrit 25.9 % (35.0-46.0) Mean Corpuscular Volume 66.3 FL (80.0-100.0) Mean Corpuscular Hemoglobin 19.9 PG (27.0-34.0) Mean Corpuscular Hemoglobin Concent 30.1 % (32.0-36.0) Red Cell Distribution Width 21.2 % (11.6-17.2) Platelet Count 298 TH/MM3 (150-450) Mean Platelet Volume 7.7 FL (7.0-11.0) Neutrophils (%) (Auto) 72.4 % (16.0-70.0) Lymphocytes (%) (Auto) 15.1 % (9.0-44.0) Monocytes (%) (Auto) 9.4 % (0.0-8.0) Eosinophils (%) (Auto) 2.2 % (0.0-4.0) Basophils (%) (Auto) 0.9 % (0.0-2.0) Neutrophils # (Auto) 8.0 TH/MM3 (1.8-7.7) Lymphocytes # (Auto) 1.7 TH/MM3 (1.0-4.8) Monocytes # (Auto) 1.0 TH/MM3 (0-0.9) Eosinophils # (Auto) 0.2 TH/MM3 (0-0.4) Basophils # (Auto) 0.1 TH/MM3 (0-0.2) CBC Comment DIFF FINAL Differential Comment Blood Urea Nitrogen 8 MG/DL (7-18) Creatinine 0.46 MG/DL (0.50-1.00) Random Glucose 150 MG/DL (74-106) Calcium Level 7.9 MG/DL (8.5-10.1) Phosphorus Level 2.7 MG/DL (2.5-4.9) Magnesium Level 2.0 MG/DL (1.5-2.5) Potassium Level 3.6 MEQ/L (3.5-5.1) Chloride Level 117 MEQ/L (98-107) Carbon Dioxide Level 24.6 MEQ/L (21.0-32.0) Anion Gap 6 MEQ/L (5-15) Estimat Glomerular Filtration Rate 139 ML/MIN (>89) Result Diagram: 04/11/17 0430 04/11/17 1200 Procedures * 04/08/17: Endotracheal intubation . Assessment and Plan Disease Oriented Problem List: (1) right intraparenchymal hemorrhage (2) CVA (cerebral vascular accident) (3) Acute respiratory failure (4) COPD (chronic obstructive pulmonary disease) (5) Atrial fibrillation (6) Hypertension Symptom Scale: (1) Pain 0-10 Scale: Unable to quantify Pertinent Non-Medical Issues Psychosocial: Patient is originally from [place]. to current for the past 8 years. Patient has 1 biological son, Jim. Patient is disabled secondary to osteoarthritis of bilateral knees and hips. No service. Has a sister in [place] by the name of Carly. Spiritual: No tenriism affiliation. Legal: No AD completed. Ethical issues impacting care: No ethical issues identified. . Important Contacts Joshua Lawson Sharri Merlos Friend Mckayla Gannon Son Jim -pending contact information . Prognosis Mrs. Schmidt is a 62-year-old female with a medical history significant for atrial fibrillation, hypertension, dyslipidemia, COPD, sleep apnea, obesity and smoking. Patient with acute ischemic infarct of the right parietal lobe, complicated by subsequent large intracerebral hemorrhage in the temporoparietal region on the right side with 4-5mm midline shift to the left, almost complete obliteration of the third ventricle. Further complicated by worsening midline shift currently 15 mm. Overall prognosis very poor for a meaningful recovery or survival, may to progress to brain-. . Code Status: No Code Plan * CODE STATUS: NO code. * HEALTHCARE DECISION-MAKING: Patient lacks medical decision-making capacity given clinical condition, catastrophic brain hemorrhage. Patient will not regain medical decision-making capacity. No advance directives completed. As per [place] statute, healthcare proxy decision making falls to patient's Joshua Lawson. has accepted this role. He is supported by family friend Rama and patient's Jim. * GOALS OF CARE: Patient's acting as healthcare proxy decision maker has elected to transition patient to comfort-directed care/compassionate withdrawal of life support given pt's very poor prognosis and known wishes. Exhibits B & C signed. * SYMPTOMS: =Pain, SOB, anxiety: comfort medications on board. * Case discussed with Dr. Cotton. * Anticipatory guidance provided to family. Hospice introduced should patient survives the night. Family receptive. * Ongoing emotional support and active listening provided. * Palliative care contact information has been provided to patient's family. * Palliative care will continue to follow-up for further clarifications of goals of care as patient's clinical course continues to evolve. . Time Spent Total Floor Time (mins): 69 (Total time to include family meeting from 11:05 to 11:43, 12:33 to 12:46, physical exam, case discussion with Dr. Cotton, Dr. Moreno and bedside RN. ) >50% Counseling/Coord of Care: Yes Attestation To help prompt me to consider important information that might be impacting today's encounter and assessment, information from prior notes written by myself or my colleagues may have been "brought forward" into today's note. My signature on this note, however, is an attestation that I personally performed the exam, history, and/or decision-making noted today, and, unless otherwise indicated, the interactions with patient, family, and staff as well as the review of records all occurred today. I also attest that the listed assessment and stated plan reflect my best clinical judgment today based on the combination of historical information, prior notes, and today's exam/ interactions. When time spent is documented, it refers only to time spent today by the signer, or if indicated, combined time spent today by collaborating physician/nurse practitioner. Claudia Gillespie Apr 11, 2017 13:33
[2017-04-11] MEDS ORDERED: HYOSCYAMINE 0.5 MG/ML AMP IV PUSH PRN (13:45)
[2017-04-11] MEDS ORDERED: LORazepam 2 MG/ML VIAL IV PUSH PRN ×3 (13:45)
[2017-04-11] MEDS ORDERED: FUROSEMIDE 20 MG/2 ML VIAL IV PUSH PRN (13:45)
[2017-04-11] MEDS ORDERED: HYDROmorphone HCL PF 2 MG/ML VIAL IV PUSH PRN ×2 (13:45)
[2017-04-11] MEDS ORDERED: HYDROmorphone HCL PF 2 MG/ML VIAL IV PUSH SCH (16:00)
--- NOTE | 2017-04-11 20:04 | HHI.DS ---
Discharge Summary Admission Date Apr 08, 2017 at 16:14 Discharge Date: Apr 11, 2017 Admitting Diagnosis Intraparenchymal hemorrhage Acute respiratory failure Acute encephalopathy (1) right intraparenchymal hemorrhage Diagnosis: Principal (2) Acute respiratory failure ICD Code: J96.00 - Acute respiratory failure, unspecified whether with hypoxia or hypercapnia Diagnosis: Principal (3) IBS (irritable bowel syndrome) ICD Code: K58.9 - Irritable bowel syndrome without diarrhea Diagnosis: Secondary (4) Acute hyperglycemia ICD Code: R73.9 - Hyperglycemia, unspecified Diagnosis: Secondary (5) CAREY (obstructive sleep apnea) ICD Code: G47.33 - Obstructive sleep apnea (adult) (pediatric) Diagnosis: Secondary (6) Dyslipidemia ICD Code: E78.5 - Hyperlipidemia, unspecified Diagnosis: Secondary (7) Iron deficiency anemia ICD Code: D50.9 - Iron deficiency anemia, unspecified Diagnosis: Secondary (8) COPD (chronic obstructive pulmonary disease) ICD Code: J44.9 - Chronic obstructive pulmonary disease, unspecified Diagnosis: Secondary (9) Morbid obesity with BMI of 40.0-44.9, adult ICD Code: E66.01 - Morbid (severe) obesity due to excess calories; Z68.41 - Body mass index (BMI) 40.0-44.9, adult Diagnosis: Principal (10) Osteoarthritis ICD Code: M19.90 - Unspecified osteoarthritis, unspecified site Diagnosis: Secondary (11) Hypertension ICD Code: I10 - Essential (primary) hypertension Diagnosis: Secondary (12) Atrial fibrillation, chronic ICD Code: I48.2 - Chronic atrial fibrillation Diagnosis: Principal Brief History This is a 62-year-old female. Date of admission 04/08/2017. Past medical history includes chronic atrial fibrillation not on anticoagulation, hypertension, discectomy, COPD, obstructive apnea, iron deficiency anemia. Elevated BMI. Patient originally presented to [facility] 03/28 since after weakness/fall at 3 1 04/07. Of note patient had stopped her anticoagulation which was December 2016 secondary to iron deficiency anemia. She experience left-sided weakness with facial droop. Her atrial fibrillation is noted to be in RVR and was started on Cardizem for rate control. She is given aspirin at that time. 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 She was seen in consultation by neurology who did not recommend alteplase secondary to time duration from onset of symptoms.. She was seen in consultation by cardiology as well as started on rivaroxaban for likely embolic stroke secondary to CVA. 2D echocardiogram revealed an EF of 55%. Trace MR/MR and PI. Right ventricular systolic pressure was 26. Today, patient has decline in function. Stat CT of the brain revealed a right temporoparietal internal hemorrhage that obliterates the third ventricle with a 4-5 mm shift to the left. Patient was emergently intubated due to altered mental status and transferred to [facility] for evaluation by neurosurgery. In route patient was transported on propofol became hypotensive. This discontinued. Upon arrival patient was spontaneously moving the right upper lower extremity but not purposely. Left side remained flaccid. All labs and imaging currently pending at time of dictation CBC/BMP: 04/11/17 0430 04/11/17 1200 Significant Findings Laboratory Tests Test 04/09/17 05:00 04/09/17 12:50 04/09/17 19:00 04/10/17 01:15 White Blood Count 11.8 TH/MM3 (4.0-11.0) Hemoglobin 9.5 GM/DL (11.6-15.3) Hematocrit 32.4 % (35.0-46.0) Mean Corpuscular Volume 65.2 FL (80.0-100.0) Mean Corpuscular Hemoglobin 19.2 PG (27.0-34.0) Mean Corpuscular Hemoglobin Concent 29.5 % (32.0-36.0) Red Cell Distribution Width 20.5 % (11.6-17.2) Monocytes (%) (Auto) 9.2 % (0.0-8.0) Neutrophils # (Auto) 8.2 TH/MM3 (1.8-7.7) Monocytes # (Auto) 1.1 TH/MM3 (0-0.9) Prothrombin Time 12.2 SEC (9.8-11.6) Random Glucose 139 MG/DL (74-106) Albumin 2.8 GM/DL (3.4-5.0) Calcium Level 8.1 MG/DL (8.5-10.1) Phosphorus Level 2.3 MG/DL (2.5-4.9) Aspartate Amino Transf (AST/SGOT) 13 U/L (15-37) Chloride Level 110 MEQ/L (98-107) Cholesterol Level 104 MG/DL (120-200) HDL Cholesterol 28.8 MG/DL (40.0-60.0) Serum Osmolality 296 MOSM/KG (275-295) 303 MOSM/KG (275-295) Iron Level 12 MCG/DL (50-170) Percent Iron Saturation 4.3 % (20-50) Transferrin 201 MG/DL (213-418) Test 04/10/17 04:33 04/10/17 07:36 04/10/17 15:20 04/10/17 17:50 Hemoglobin 8.4 GM/DL (11.6-15.3) Hematocrit 27.5 % (35.0-46.0) Mean Corpuscular Volume 65.4 FL (80.0-100.0) Mean Corpuscular Hemoglobin 19.8 PG (27.0-34.0) Mean Corpuscular Hemoglobin Concent 30.3 % (32.0-36.0) Red Cell Distribution Width 20.7 % (11.6-17.2) Monocytes (%) (Auto) 8.9 % (0.0-8.0) Random Glucose 136 MG/DL (74-106) Total Protein 6.0 GM/DL (6.4-8.2) Albumin 2.5 GM/DL (3.4-5.0) Calcium Level 7.9 MG/DL (8.5-10.1) Aspartate Amino Transf (AST/SGOT) 10 U/L (15-37) Chloride Level 114 MEQ/L (98-107) Serum Osmolality 302 MOSM/KG (275-295) 303 MOSM/KG (275-295) 312 MOSM/KG (275-295) Blood Gas HCO3 20 mmol/L (22-26) Blood Gas Base Excess -3.2 mmol/L (-2-2) Arterial Blood pH 7.45 (7.380-7.420) Arterial Blood Partial Pressure CO2 30 mmHg (38-42) Arterial Blood Oxygen Content 11.0 Vol % (12.0-20.0) Blood Gas Hemoglobin 8.1 G/DL (12.0-16.0) Sodium Level 148 MEQ/L (136-145) 148 MEQ/L (136-145) Test 04/11/17 00:31 04/11/17 04:30 04/11/17 12:00 Sodium Level 148 MEQ/L (136-145) 148 MEQ/L (136-145) 150 MEQ/L (136-145) Serum Osmolality 310 MOSM/KG (275-295) 308 MOSM/KG (275-295) 308 MOSM/KG (275-295) Red Blood Count 3.90 MIL/MM3 (4.00-5.30) Hemoglobin 7.8 GM/DL (11.6-15.3) Hematocrit 25.9 % (35.0-46.0) Mean Corpuscular Volume 66.3 FL (80.0-100.0) Mean Corpuscular Hemoglobin 19.9 PG (27.0-34.0) Mean Corpuscular Hemoglobin Concent 30.1 % (32.0-36.0) Red Cell Distribution Width 21.2 % (11.6-17.2) Neutrophils (%) (Auto) 72.4 % (16.0-70.0) Monocytes (%) (Auto) 9.4 % (0.0-8.0) Neutrophils # (Auto) 8.0 TH/MM3 (1.8-7.7) Monocytes # (Auto) 1.0 TH/MM3 (0-0.9) Creatinine 0.46 MG/DL (0.50-1.00) Random Glucose 150 MG/DL (74-106) Calcium Level 7.9 MG/DL (8.5-10.1) Chloride Level 117 MEQ/L (98-107) Imaging Last Impressions Head CT 04/10/17 0730 Signed Impressions: Service Date/Time: Monday, April 10, 2017 09:14 - CONCLUSION: 1. Unchanged acute intraperitoneal hemorrhage on the right. There has been a slight worsening in the midline shift now measuring 15 mm as opposed to 13 mm. 2. Small focus of low attenuation involving the cortex of the left parietal lobe either related to small nonhemorrhagic contusion or area of infarction. This is unchanged. Tex Buchanan Jr., MD Chest X-Ray 04/10/17 0600 Signed Impressions: Service Date/Time: Monday, April 10, 2017 04:31 - CONCLUSION: 1. New opacity at the left lung base with blunting of left costophrenic angle characteristic of infiltrate and/or effusion. This is of concern for pneumonia. 2. The patient remains intubated. Alex Walker MD PE at Discharge Transfer Summary Ongoing deterioration despite full support. Family decided to withdraw care based on patient's known wishes. Patient at 14:36 on 04/11/17. Hospital Course This is a 62-year-old female. Date of admission 04/08/2017. Past medical history includes chronic atrial fibrillation not on anticoagulation, hypertension, discectomy, COPD, obstructive apnea, iron deficiency anemia. Elevated BMI. Patient originally presented to [facility] 03/28 since after weakness/fall at 3 1 04/07. Of note patient had stopped her anticoagulation which was December 2016 secondary to iron deficiency anemia. She experience left-sided weakness with facial droop. Her atrial fibrillation is noted to be in RVR and was started on Cardizem for rate control. She is given aspirin at that time. 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 She was seen in consultation by neurology who did not recommend alteplase secondary to time duration from onset of symptoms.. She was seen in consultation by cardiology as well as started on rivaroxaban for likely embolic stroke secondary to CVA. 2D echocardiogram revealed an EF of 55%. Trace MR/MR and PI. Right ventricular systolic pressure was 26. Today, patient has decline in function. Stat CT of the brain revealed a right temporoparietal internal hemorrhage that obliterates the third ventricle with a 4-5 mm shift to the left. Patient was emergently intubated due to altered mental status and transferred to [facility] for evaluation by neurosurgery. In route patient was transported on propofol became hypotensive. This discontinued. Upon arrival patient was spontaneously moving the right upper lower extremity but not purposely. Left side remained flaccid. All labs and imaging currently pending at time of dictation 04/09: CT brain assay revealed worsening right-sided intraparenchymal hemorrhage with a 6.4 cm AP diameter with 9.3 cm cerebral edema in the penumbra with a right to left shift of 13 mm. Partial effacement of the perimesenteric cistern and compression of the right lateral ventricle. Currently on 3% saline and mannitol. Neurosurgery will be notified. Otherwise currently withdrawing to right upper lower extremity only. Positive grimace. Subjective 04/10: Afebrile. Withdraws to left lower extremity this AM. Pupils remain pinpoint. Plan for CT head in a.m. Long discussion with family including inside with neurosurgery. Became very poor prognosis did not wish to pursue surgical intervention. CT brain done this AM. Palliative care consult pending Pt Condition on Discharge: Deteriorating Marlo Wen MD Apr 11, 2017 20:04
== END 2017-04-11 16:25 | disposition expired | DRG 64 ==
LOC: N03B 16:14
PROVIDERS: ADMIT Surgery Surgical Critical Care; ATTEND Surgery Surgical Critical Care
PROC: 03HY32Z Insertion of Monitoring Device into Upper Artery, Percutaneous Approach (ICD-10-PCS; principal; 2017-04-08)
PROC: 5A1945Z Respiratory Ventilation, 24-96 Consecutive Hours (ICD-10-PCS; 2017-04-08)
DX: I63.411 Cerebral infarction due to embolism of right middle cerebral artery (principal); I61.5 Nontraumatic intracerebral hemorrhage, intraventricular; G93.6 Cerebral edema; J96.00 Acute respiratory failure, unspecified whether with hypoxia or hypercapnia; G93.40 Encephalopathy, unspecified; Z68.41 Body mass index [BMI] 40.0-44.9, adult; G81.91 Hemiplegia, unspecified affecting right dominant side; J98.11 Atelectasis; I10 Essential (primary) hypertension; E78.5 Hyperlipidemia, unspecified; J44.9 Chronic obstructive pulmonary disease, unspecified; E66.01 Morbid (severe) obesity due to excess calories; K58.9 Irritable bowel syndrome, unspecified; R73.9 Hyperglycemia, unspecified; G47.33 Obstructive sleep apnea (adult) (pediatric); D50.9 Iron deficiency anemia, unspecified; I48.2 Chronic atrial fibrillation; R29.810 Facial weakness; Z51.5 Encounter for palliative care; M17.0 Bilateral primary osteoarthritis of knee; M16.0 Bilateral primary osteoarthritis of hip; D72.829 Elevated white blood cell count, unspecified; E83.39 Other disorders of phosphorus metabolism; G89.29 Other chronic pain; Z87.891 Personal history of nicotine dependence; Z79.01 Long term (current) use of anticoagulants
CPT/HCPCS: 36556; 70450; 71045; 76937; 80048; 80053; 80061; 80307; 82140; 82150; 82550; 82728; 82805; 82948; 83036; 83540; 83550; 83605; 83690; 83735; 83930; 84100; 84295; 84443; 84466; 85025; 85384; 85610; 85730; 86850; 86900; 86901; 87641; 93005; 93306; 94002; 94003; 94640; 94664; 95819; J1170; J1815; J1980; J2060; J2150; J2250; J3010; J3475; J7030